=== PATIENT | male | born 1965 | race Caucasian/White ===

== ENCOUNTER 2018-05-10 08:43 | Day surgery (SDC) | payer MEDICAID, OTHER ==
[2018-05-08 10:36] VITALS: BMI 29.0
[~2018-05-10 08:43] MED LIST: LACTATED RINGERS 1,000 ML IV SCH
[2018-05-10] MEDS ORDERED: LACTATED RINGERS 1,000 ML IV ONE (09:10)
[2018-05-10 09:16] VITALS: RESP 16; TEMP 97.7
[2018-05-10] MEDS ORDERED: PROPOFOL 10 MG/ML 20 ML VIAL IV ONE (09:39)
[2018-05-10 10:09] VITALS: BP 108/63; PULSE 56
--- NOTE | 2018-05-10 10:09 | P.PCN ---
Date of Procedure: 05/10/18 Description of Procedure: PREOPERATIVE DIAGNOSIS: Colonoscopy screening Personal history of colon polyps. Family history of colon cancer, brothers x 2 Chronic anticoagulant therapy History of mechanical heart valve POSTOPERATIVE DIAGNOSIS: Colonoscopy screening Personal history of colon polyps. Family history of colon cancer, brothers Colon polyp at descending colon Moderate sigmoid diverticulosis Chronic anticoagulant therapy History of mechanical heart valve Angiodysplasia at 10 cm, rectum OPERATION: Colonoscopy to the ileocecal valve and appendiceal orifice. Colonoscopy with hot snare polypectomy SURGEON: Cesilia Lynn MD. ANESTHESIA: MAC. INDICATIONS: The patient is a 52-year-old male who presents for colonoscopy screening. Last colonoscopy over 13 years ago. Benefits and risks were described and informed consent was obtained. DESCRIPTION OF PROCEDURE: The patient had undergone Gatorade, MiraLAX and Dulcolax prep. He had been brought into the operating room and laid in the left lateral decubitus position. After adequate intravenous sedation, the rectum was examined with 2% lidocaine jelly. No external hemorrhoids were encountered. The rectal tone was within normal limits. No lesions were palpated in the rectal vault. An Olympus colonoscope was advanced until the ileocecal valve and appendiceal orifice were clearly viewed. The prep was fair with visualization of the mucosal folds. The scope was removed with visualization of each mucosal fold. Scattered diverticulosis was encountered. Colonic polyp was snare polypectomy. Arteriovenous malformation at 10 cm from the anal verge, rectum without bleeding. No evidence of focal colitis was found. Retroflexion of the scope demonstrated no internal hemorrhoids. The colon was desufflated. The patient had tolerated the procedure well. Withdrawal time was over 6 minutes. FINDINGS: No internal hemorrhoids No external hemorrhoids Arteriovenous malformation at 10 cm from the anal verge, rectum without bleeding Removal of 1 polyp: - Snare polypectomy 50 cm from the anal verge, 4 mm flat villous adenoma polyp, descending colon No focal colitis. Moderate sigmoid diverticulosis RECOMMENDATIONS: Repeat colonoscopy in 3 years, 2021, high risk history Plan - Discharge Summary Discharge Rx Participant: No New Discharge Prescriptions: No Action Aspirin 81 mg PO DAILY #30 chew Multivitamins, Thera [Multivitamin (formulary)] 1 each PO DAILY Furosemide [Lasix] 20 mg PO MOWEFR Cholecalciferol [Vitamin D3] 2,000 unit PO HS Warfarin [Coumadin] 5 mg PO DAILY Potassium Chloride 10 meq PO DAILY Enoxaparin [Lovenox] 100 mg SQ ONCE Discharge Medication List Aspirin 81 mg PO DAILY #30 chew 04/30/15 [Rx] Multivitamins, Thera [Multivitamin (formulary)] 1 each PO DAILY 06/14/15 [History] Cholecalciferol [Vitamin D3] 2,000 unit PO HS 11/26/15 [History] Furosemide [Lasix] 20 mg PO MOWEFR 11/26/15 [History] Potassium Chloride 10 meq PO DAILY 05/08/18 [History] Warfarin [Coumadin] 5 mg PO DAILY 05/08/18 [History] Enoxaparin [Lovenox] 100 mg SQ ONCE 05/10/18 [History]
--- NOTE | 2018-05-10 10:09 | P.GSHP ---
History of Present Illness H&P Date: 05/10/18 PREOPERATIVE DIAGNOSIS: Colonoscopy screening Personal history of colon polyps. Family history of colon cancer, brothers x 2 Chronic anticoagulant therapy History of mechanical heart valve POSTOPERATIVE DIAGNOSIS: Colonoscopy screening Personal history of colon polyps. Family history of colon cancer, brothers Colon polyp at descending colon Moderate sigmoid diverticulosis Chronic anticoagulant therapy History of mechanical heart valve Angiodysplasia at 10 cm, rectum OPERATION: Colonoscopy to the ileocecal valve and appendiceal orifice. Colonoscopy with hot snare polypectomy SURGEON: Cesilia Lynn MD. ANESTHESIA: MAC. INDICATIONS: The patient is a 52-year-old male who presents for colonoscopy screening. Last colonoscopy over 13 years ago. Benefits and risks were described and informed consent was obtained. DESCRIPTION OF PROCEDURE: The patient had undergone Gatorade, MiraLAX and Dulcolax prep. He had been brought into the operating room and laid in the left lateral decubitus position. After adequate intravenous sedation, the rectum was examined with 2% lidocaine jelly. No external hemorrhoids were encountered. The rectal tone was within normal limits. No lesions were palpated in the rectal vault. An Olympus colonoscope was advanced until the ileocecal valve and appendiceal orifice were clearly viewed. The prep was fair with visualization of the mucosal folds. The scope was removed with visualization of each mucosal fold. Scattered diverticulosis was encountered. Colonic polyp was snare polypectomy. Arteriovenous malformation at 10 cm from the anal verge, rectum without bleeding. No evidence of focal colitis was found. Retroflexion of the scope demonstrated no internal hemorrhoids. The colon was desufflated. The patient had tolerated the procedure well. Withdrawal time was over 6 minutes. FINDINGS: No internal hemorrhoids No external hemorrhoids Arteriovenous malformation at 10 cm from the anal verge, rectum without bleeding Removal of 1 polyp: - Snare polypectomy 50 cm from the anal verge, 4 mm flat villous adenoma polyp, descending colon No focal colitis. Moderate sigmoid diverticulosis RECOMMENDATIONS: Repeat colonoscopy in 3 years, 2021, high risk history Past Medical History Past Medical History: Atrial Fibrillation, Heart Failure, Hearing Disorder / Deafness, Hypertension, Sleep Apnea/CPAP/BIPAP Additional Past Medical History / Comment(s): . [facility], [place] [facility]. EARS- RT EAR HEARING AID, enlarged heart, "leaky heart valve" History of Any Multi-Drug Resistant Organisms: None Reported Past Surgical History: Cardiac Ablation, Ear Surgery, Heart Catheterization Additional Past Surgical History / Comment(s): RT EAR SURGERY x2, CARDIOVERSION X -JUNE 2015 & JULY 2015, ARIELLA 06/15/15, 11-29-15 heart valve replacement, COLONOSCOPY Past Anesthesia/Blood Transfusion Reactions: No Reported Reaction Additional Past Anesthesia/Blood Transfusion Reaction / Comment(s): was slow to wake up after heart valve sx Smoking Status: Never smoker - Past Family History Father Family Medical History: Cancer Additional Family Medical History / Comment(s): ESOPHAGUS CA Mother Family Medical History: Pulmonary Embolus Additional Family Medical History / Comment(s): Mother is living and is 87 yrs old. Brother(s) Family Medical History: Cancer Additional Family Medical History / Comment(s): COLON CA. SEVERAL BROTHERS WHO HAD COLON CA Medications and Allergies Home Medications Medication Instructions Recorded Confirmed Type Aspirin 81 mg PO DAILY #30 chew 04/30/15 05/10/18 Rx Multivitamins, Thera [Multivitamin 1 each PO DAILY 06/14/15 05/10/18 History (formulary)] Cholecalciferol [Vitamin D3] 2,000 unit PO HS 11/26/15 05/10/18 History Furosemide [Lasix] 20 mg PO MOWEFR 11/26/15 05/10/18 History Potassium Chloride 10 meq PO DAILY 05/08/18 05/10/18 History Warfarin [Coumadin] 5 mg PO DAILY 05/08/18 05/10/18 History Enoxaparin [Lovenox] 100 mg SQ ONCE 05/10/18 05/10/18 History Allergies Allergy/AdvReac Type Severity Reaction Status Date / Time No Known Allergies Allergy Verified 05/10/18 09:11 Surgical - Exam Vital Signs Temp Pulse Resp BP Pulse Ox 97.7 F 50 L 16 130/79 97 05/10/18 09:00 05/10/18 09:00 05/10/18 09:00 05/10/18 09:00 05/10/18 09:00
--- NOTE | 2018-05-10 10:10 | P.GSHP ---
History of Present Illness H&P Date: 05/10/18 CHIEF COMPLAINT: Colon screen HISTORY OF PRESENT ILLNESS: The patient is a 52-year-old male who presents for colon screen. Lower endoscopy was offered for further evaluation and management. PAST MEDICAL HISTORY: Please see list. PAST SURGICAL HISTORY: Please see list. MEDICATIONS: Please see list. ALLERGIES: Please see list. SOCIAL HISTORY: No illicit drug use FAMILY HISTORY: No reports of Crohn disease or ulcerative colitis. REVIEW OF ORGAN SYSTEMS: CONSTITUTIONAL: No reports of fevers or chills. PHYSICAL EXAM: VITAL SIGNS: Stable GENERAL: Well-developed pleasant in no acute distress. HEENT: No scleral icterus. Extraocular movements grossly intact. Moist buccal mucosa. NECK: Supple without lymphadenopathy. CHEST: Unlabored respirations. Equal bilateral excursions. CARDIOVASCULAR: Regular rate and rhythm. Distal 2+ pulses. ABDOMEN: Soft, nontender, nondistended. MUSCULOSKELETAL: No clubbing, cyanosis, or edema. ASSESSMENT: 1. Colon screen. PLAN: 1. Recommend proceeding with a lower endoscopy Past Medical History Past Medical History: Atrial Fibrillation, Heart Failure, Hearing Disorder / Deafness, Hypertension, Sleep Apnea/CPAP/BIPAP Additional Past Medical History / Comment(s): . [facility], [place] [facility]. EARS- RT EAR HEARING AID, enlarged heart, "leaky heart valve" History of Any Multi-Drug Resistant Organisms: None Reported Past Surgical History: Cardiac Ablation, Ear Surgery, Heart Catheterization Additional Past Surgical History / Comment(s): RT EAR SURGERY x2, CARDIOVERSION X -JUNE 2015 & JULY 2015, ARIELLA 06/15/15, 11-29-15 heart valve replacement, COLONOSCOPY Past Anesthesia/Blood Transfusion Reactions: No Reported Reaction Additional Past Anesthesia/Blood Transfusion Reaction / Comment(s): was slow to wake up after heart valve sx Smoking Status: Never smoker - Past Family History Father Family Medical History: Cancer Additional Family Medical History / Comment(s): ESOPHAGUS CA Mother Family Medical History: Pulmonary Embolus Additional Family Medical History / Comment(s): Mother is living and is 87 yrs old. Brother(s) Family Medical History: Cancer Additional Family Medical History / Comment(s): COLON CA. SEVERAL BROTHERS WHO HAD COLON CA Medications and Allergies Home Medications Medication Instructions Recorded Confirmed Type Aspirin 81 mg PO DAILY #30 chew 04/30/15 05/10/18 Rx Multivitamins, Thera [Multivitamin 1 each PO DAILY 06/14/15 05/10/18 History (formulary)] Cholecalciferol [Vitamin D3] 2,000 unit PO HS 11/26/15 05/10/18 History Furosemide [Lasix] 20 mg PO MOWEFR 11/26/15 05/10/18 History Potassium Chloride 10 meq PO DAILY 05/08/18 05/10/18 History Warfarin [Coumadin] 5 mg PO DAILY 05/08/18 05/10/18 History Enoxaparin [Lovenox] 100 mg SQ ONCE 05/10/18 05/10/18 History Allergies Allergy/AdvReac Type Severity Reaction Status Date / Time No Known Allergies Allergy Verified 05/10/18 09:11 Surgical - Exam Vital Signs Temp Pulse Resp BP Pulse Ox 97.7 F 50 L 16 130/79 97 05/10/18 09:00 05/10/18 09:00 05/10/18 09:00 05/10/18 09:00 05/10/18 09:00
== END 2018-05-10 10:57 | disposition home or self-care (01) ==
LOC: ORWHC2ENDO 08:43
PROVIDERS: ATTEND Surgery Plastic and Reconstructive Surgery
DX: Z12.11 Encounter for screening for malignant neoplasm of colon (principal); D12.4 Benign neoplasm of descending colon; K57.30 Diverticulosis of large intestine without perforation or abscess without bleeding; K62.89 Other specified diseases of anus and rectum; Z80.0 Family history of malignant neoplasm of digestive organs; Z83.71 Family history of colonic polyps; Z86.010 Personal history of colon polyps; H91.93 Unspecified hearing loss, bilateral; I11.0 Hypertensive heart disease with heart failure; I50.9 Heart failure, unspecified; I48.91 Unspecified atrial fibrillation; G47.30 Sleep apnea, unspecified; I38 Endocarditis, valve unspecified; Z99.89 Dependence on other enabling machines and devices; Z95.2 Presence of prosthetic heart valve; Z79.01 Long term (current) use of anticoagulants; Z79.82 Long term (current) use of aspirin; Z79.899 Other long term (current) drug therapy
CPT/HCPCS: 88305; 45385; J2704

== ENCOUNTER → 2018-06-21 | Outpatient (CLI) | payer MEDICAID ==
[2018-06-21 16:26] LABS: HCT 46.5 % (39.0-53.0); HGB 15.5 gm/dL (13.0-17.5); MCH 31.2 pg (25.0-35.0); MCHC 33.4 g/dL (31.0-37.0); MCV 93.4 fL (80.0-100.0); Mean Platelet Volume 8.9; Platelet Count 167 k/uL (150-450); RBC 4.98 m/uL (4.30-5.90); RDW 14.3 % (11.5-15.5); WBC 8.3 k/uL (3.8-10.6)
[2018-06-21 23:13] LABS: Albumin 4.2 g/dL (3.80-4.90); Albumin/Globulin Ratio 2.63 (1.60-3.17); Anion Gap 9.2 mmol/L (4.00-12.00); Calcium 8.8 mg/dL (8.7-10.3); Carbon Dioxide 26.8 mmol/L (21.6-31.8); Globulin 1.6 g/dL (1.6-3.3); Potassium 3.7 mmol/L (3.5-5.5); Total Bilirubin 1.2 mg/dL (0.2-1.2); Total Protein 5.8 g/dL (6.2-8.2)
== END ==
LOC: LABWHC1 15:55
PROVIDERS: ATTEND Internal Medicine Clinical Cardiac Electrophysiology
DX: Z01.812 Encounter for preprocedural laboratory examination (principal); I48.1 Persistent atrial fibrillation
CPT/HCPCS: 36415; 80053; 84443; 85027

== ENCOUNTER 2018-06-24 11:50 | Inpatient (IN) | payer MEDICAID ==
[2018-06-24] MEDS ORDERED: ASPIRIN 81 MG PO STA (12:24)
[2018-06-24 13:07] LABS: Basophils % (A) 0 %; Eosinophils # (A) 0.1 k/uL (0-0.7); Eosinophils % (A) 2 %; HCT 47.6 % (39.0-53.0); HGB 16.1 gm/dL (13.0-17.5); Lymphocytes # (A) 1.1 k/uL (1.0-4.8); Lymphocytes % (A) 15 %; MCH 31.3 pg (25.0-35.0); MCHC 33.7 g/dL (31.0-37.0); MCV 92.7 fL (80.0-100.0); Mean Platelet Volume 8.9; Monocytes # (A) 0.5 k/uL (0-1.0); Monocytes % (A) 7 %; Neutrophils # (A) 5.4 k/uL (1.3-7.7); Neutrophils % (A) 74 %; Platelet Count 188 k/uL (150-450); RBC 5.14 m/uL (4.30-5.90); RDW 13.9 % (11.5-15.5); WBC 7.4 k/uL (3.8-10.6)
--- NOTE | 2018-06-24 13:07 | ED ---
Chest Pain HPI - General Source: patient Mode of arrival: ambulatory Limitations: no limitations <Junior Morrison - Last Filed: 06/24/18 13:06> - General Source: patient, RN notes reviewed Mode of arrival: ambulatory Limitations: no limitations <Gerardo Esquivel - Last Filed: 06/24/18 16:27> - General Chief Complaint: Chest Pain Stated Complaint: sob, sweats, sent by Dr Demarco Time Seen by Provider: 06/24/18 12:24 - History of Present Illness Initial Comments: This a 53-year-old male presents emergency Department chief complaint of palpitations, chest pressure, cold sweats. Patient states he has known Imani junior as scheduled for cardioversion tomorrow by Dr. Demarco. Patient states that he was recently started on metoprolol 50 mg twice a day and flecainide. Patient states his been taking his medications but felt off today. Patient's heart rate has been elevated. Patient does take Coumadin for mechanical valve which this was performed at [facility] for mitral valve replacement. Patient has been cardioverted in the past. Patient denies any shortness breath, headache or dizziness. Patient states he has taken his medications as directed. (Gerardo Esquivel) - Related Data Home Medications Medication Instructions Recorded Confirmed Multivitamins, Thera [Multivitamin 1 tab PO DAILY 06/14/15 06/24/18 (formulary)] Cholecalciferol [Vitamin D3] 2,000 unit PO DAILY 11/26/15 06/24/18 Furosemide [Lasix] 20 mg PO DAILY 11/26/15 06/24/18 Potassium Chloride 10 meq PO DAILY 05/08/18 06/24/18 Warfarin [Coumadin] 5 mg PO [id number] 05/08/18 06/24/18 Flecainide [Tambocor] 50 mg PO Q12HR 06/21/18 06/24/18 Metoprolol Tartrate [Lopressor] 50 mg PO BID 06/21/18 06/24/18 Warfarin [Coumadin] 7.5 mg PO TH 06/21/18 06/24/18 Previous Rx's Medication Instructions Recorded Aspirin 81 mg PO DAILY #30 chew 04/30/15 Allergies Allergy/AdvReac Type Severity Reaction Status Date / Time No Known Allergies Allergy Verified 06/24/18 12:37 Review of Systems ROS Other: All systems not noted in ROS Statement are negative. <Junior Morrison - Last Filed: 06/24/18 13:06> ROS Other: All systems not noted in ROS Statement are negative. <Gerardo Esquivel - Last Filed: 06/24/18 16:27> ROS Statement: Those systems with pertinent positive or pertinent negative responses have been documented in the HPI. EKG Findings - EKG Comments: EKG Findings:: EKG shows sinus tachycardia likely atrial fibrillation rate of 123, [place] 120, QRS 114, QTc 552 <Junior Morrison - Last Filed: 06/24/18 13:06> Past Medical History Past Medical History: Atrial Fibrillation, Heart Failure, Hearing Disorder / Deafness, Hypertension, Sleep Apnea/CPAP/BIPAP Additional Past Medical History / Comment(s): [facility], [place] [facility]. EARS-RT EAR HEARING AID, enlarged heart, "leaky heart valve" History of Any Multi-Drug Resistant Organisms: None Reported Past Surgical History: Cardiac Ablation, Ear Surgery, Heart Catheterization Additional Past Surgical History / Comment(s): RT EAR SURGERY x2, CARDIOVERSION X -JUNE 2015 & JULY 2015, ARIELLA 06/15/15, 11-29-15 heart valve replacement, [place] LONOSCOPY Past Anesthesia/Blood Transfusion Reactions: No Reported Reaction Additional Past Anesthesia/Blood Transfusion Reaction / Comment(s): was slow to wake up after heart valve sx Past Psychological History: No Psychological Hx Reported Smoking Status: Never smoker Past Alcohol Use History: None Reported Past Drug Use History: None Reported - Past Family History Father Family Medical History: Cancer Additional Family Medical History / Comment(s): ESOPHAGUS CA Mother Family Medical History: Pulmonary Embolus Additional Family Medical History / Comment(s): Mother is living and is 87 yrs old. Brother(s) Family Medical History: Cancer Additional Family Medical History / Comment(s): COLON CA. SEVERAL BROTHERS WHO HAD COLON CA <Junior Morrison - Last Filed: 06/24/18 13:06> General Exam Limitations: no limitations <Junior Morrison - Last Filed: 06/24/18 13:06> General appearance: alert, in no apparent distress Head exam: Present: atraumatic, normocephalic, normal inspection Eye exam: Present: normal appearance, PERRL, EOMI. Absent: scleral icterus, conjunctival injection, periorbital swelling ENT exam: Present: normal exam, normal oropharynx, mucous membranes moist Neck exam: Present: normal inspection. Absent: tenderness, meningismus, lymphadenopathy Respiratory exam: Present: normal lung sounds bilaterally. Absent: respiratory distress, wheezes, rales, rhonchi, stridor Cardiovascular Exam: Present: normal rhythm, tachycardia, normal heart sounds, diastolic murmur. Absent: systolic murmur, rubs, gallop, clicks GI/Abdominal exam: Present: soft, normal bowel sounds. Absent: distended, tenderness, guarding, rebound, rigid Skin exam: Present: warm, dry, intact, normal color. Absent: rash <Gerardo Esquivel - Last Filed: 06/24/18 16:27> Course Vital Signs 06/24/18 06/24/18 06/24/18 11:54 12:22 12:23 Temperature 97.8 F Pulse Rate 123 H 124 H Pulse Rate [ 124 H Student Services Counselor ] Respiratory 18 18 18 Rate Blood Pressure 133/93 143/103 O2 Sat by Pulse 99 Oximetry 06/24/18 06/24/18 06/24/18 13:00 13:55 15:00 Temperature Pulse Rate 126 H 128 H 128 H Pulse Rate [ Student Services Counselor ] Respiratory 18 16 18 Rate Blood Pressure 124/92 121/98 O2 Sat by Pulse 98 Oximetry 06/24/18 15:35 Temperature Pulse Rate 128 H Pulse Rate [ Student Services Counselor ] Respiratory 18 Rate Blood Pressure 109/98 O2 Sat by Pulse 97 Oximetry Chest Pain [facility] <Gerardo Esquivel - Last Filed: 06/24/18 16:27> - [facility] 53-year-old male presented for tachycardia, A. fib. EKG shows sinus tach, Dr. Morrison did discuss case with cardiology who recommended IV metoprolol. Patient has received multiple rounds of IV push metoprolol with no change in heart rate. Patient currently is on oral metoprolol, flecinide. Cardizem drip will be started. Patient blood pressure is maintained. Patient is scheduled for cardioversion tomorrow. (Gerardo Esquivel) Disposition <Junior Morrison - Last Filed: 06/24/18 13:06> <Gerardo Esquivel - Last Filed: 06/24/18 16:27> Clinical Impression: Tachycardia Disposition: ADMITTED IP TO THIS HOSP Condition: Stable Referrals: Juan Pablo Bradley DO [Primary Care Provider] - 1-2 days
[2018-06-24 13:18] LABS: INR 4.1 (<1.2); Partial Thromboplastin Time 40.1 sec (22.0-30.0); Prothrombin Time 39.3 sec (9.0-12.0)
[2018-06-24 13:20] LABS: ALT 35 U/L (21-72); AST 32 U/L (17-59); Albumin 4.4 g/dL (3.5-5.0); Alkaline Phosphatase 84 U/L (38-126); Anion Gap 7 mmol/L; Blood Urea Nitrogen 16 mg/dL (9-20); Calcium 9.4 mg/dL (8.4-10.2); Carbon Dioxide 25 mmol/L (22-30); Chloride 106 mmol/L (98-107); Glucose 82 mg/dL (74-99); Magnesium 1.9 mg/dL (1.6-2.3); Potassium 4.8 mmol/L (3.5-5.1); Sodium 138 mmol/L (137-145); Total Protein 6.8 g/dL (6.3-8.2)
[2018-06-24] MEDS: METOPROLOL TARTRATE 5 MG/5 ML VIAL IVP STA ×4 (13:34→15:36)
--- NOTE | 2018-06-24 13:37 | XR ---
EXAMINATION TYPE: XR chest 2V DATE OF EXAM: 06/24/2018 COMPARISON: 04/27/2015 HISTORY: Shortness of breath TECHNIQUE: Frontal and lateral views of the chest are obtained. FINDINGS: Scattered senescent parenchymal changes noted. Hyperinflation compatible with COPD. No evidence for infiltrate. No evidence for atelectasis. Heart size is stable. Mediastinal structures are stable and grossly unremarkable. No evidence for hilar prominence. Degenerative changes dorsal spine. IMPRESSION: 1. No evidence for acute pulmonary disease.
[2018-06-24] MEDS ORDERED: SODIUM CHLORIDE 0.9% 500 ML 500 ML IV ONE (15:35)
[2018-06-24] MEDS: DILTIAZEM 125 MG in SODIUM CHLORIDE 0.9% 100 ML IV SCH (16:24)
[2018-06-24] MEDS: FLECAINIDE 50 MG TAB PO SCH (21:32)
[2018-06-24 21:45] VITALS: BMI 30.1
[2018-06-25 02:13] LABS: Cholesterol 151 mg/dL (<200); HDL Cholesterol 34 mg/dL (40-60); LDL Cholesterol,Calculated 100 mg/dL (0-99); Triglycerides 84 mg/dL (<150)
--- NOTE | 2018-06-25 04:20 | HP ---
HISTORY AND PHYSICAL DATE OF SERVICE: June 24, 2018 PRESENTING COMPLAINT: Heart racing. HISTORY OF PRESENTING COMPLAINT: This is a very pleasant 53 -year-old patient who follows with Dr. 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 Chronic stable medical conditions include congestive heart failure, hard of hearing with hearing aids, hypertension, obstructive sleep apnea. The patient has a mechanical mitral valve for which he is on Coumadin for about 2 years. Patient states he had a cardiac catheterization about 2 years ago that was unremarkable. The patient has been having increased heart rate for close to at least couple of weeks. Antiarrhythmics adjusted by Dr. Demarco and patient was due for a cardioversion tomorrow. The patient continued to feel a bit short of breath, cold sweats, chest pressure, and because of multitude of the symptoms, he was admitted. EKG in the ER showed what may be atrial tachycardia and was started on a Cardizem drip. Cardiology was consulted from there with a view to possible cardioversion tomorrow. Patient also was a bit short of breath. REVIEW OF SYSTEMS: CONSTITUTIONAL: Tired. HEENT None. RESPIRATORY as above. CARDIOVASCULAR as above. GASTROINTESTINAL: None. GENITOURINARY: None. MUSCULOSKELETAL none. DERMATOLOGICAL, HEMATOLOGIC, LYMPHATIC: none. PSYCHIATRY none. NEUROLOGICAL none. PAST MEDICAL HISTORY: Atrial fibrillation, congestive heart failure, hearing disorder, hypertension, obstructive sleep apnea, enlarged heart, mechanical mitral valve. PAST SURGICAL HISTORY: Cardiac ablation, cardiac cath reported normal coronaries per patient. SOCIAL HISTORY: No smoking, alcohol. . The patient is in to repair of appliances. FAMILY HISTORY: Of esophageal cancer. HOME MEDICATIONS: 1. Coumadin 7.5 mg on , 5 mg on other weekdays. 2. Potassium 10 mEq a day. 3. Multivitamin 1 tablet p.o. daily. 4. Lopressor 50 mg b.i.d. 5. Lasix 20 mg p.o. daily. 6. Flecainide 50 mg p.o. q.12. 7. Vitamin D3 2000 units p.o. daily. 8. Aspirin 81 mg p.o. daily. ALLERGIES: None. PHYSICAL EXAMINATION: VITAL SIGNS: Vital signs on presentation, temperature 97.8, pulse 120s, respiratory 18, blood pressure 133/93, pulse 99% on room air. GENERAL APPEARANCE: Well built, BMI 30.1. Lying in bed, tired-appearing. EYES: Pupils equal. Conjunctivae normal. HEENT: External appearance of nose and ears normal. Oral cavity normal. NECK: JVD possibly raised. Mass not palpable. RESPIRATORY: Effort normal. LUNGS: Slightly decreased breath sounds. CARDIOVASCULAR: Heart sounds irregular. No edema. ABDOMEN: Soft, nontender. Liver and spleen not palpable. LYMPHATICS: No lymph nodes palpable in the neck and axilla. PSYCHIATRY: Alert and oriented x3. Mood and affect normal. NEUROLOGICAL: Pupils equal. Cranial nerves grossly intact. Power sensation grossly intact. INVESTIGATIONS: Investigations reviewed in clinical context. White count 7.4, hemoglobin 16.1, platelets 188. INR 4.1, potassium 4.8, BUN 16, creatinine 0.80, troponin 0.014 x 2. EKG tracing personally reviewed by me. Possible atrial tachycardia versus atrial flutter with rate uncontrolled. Chest x-ray shows cardiomegaly, some venous prominence. ASSESSMENT: 1. Persistent atrial flutter with rapid ventricular rate, unsure of if this is underlying atrial tachycardia. 2. Mechanical mitral valve chronically on Coumadin. 3. Coumadin monitoring. 4. Chronic congestive heart failure, EF not known, probably precipitated made worse by arrhythmia. 5. Hard of hearing. Has hearing aids. 6. Essential hypertension. 7. Obstructive sleep apnea. PLAN: Patient is started on IV Cardizem in the ER. Home medications are resumed. Cardiology was informed. They are planning a cardioversion tomorrow I was told. Patient does look a bit in fluid overload. We will add a BNP and also give a dose of Lasix. Care was discussed with the patient. Questions were answered. Copy to Dr. Bradley. MMODL / IJN: [id number] /
[2018-06-25] MEDS: DILTIAZEM 125 MG in SODIUM CHLORIDE 0.9% 100 ML IV SCH (04:57)
[2018-06-25] MEDS: FLECAINIDE 50 MG TAB PO SCH ×2 (05:41→20:46)
[2018-06-25] MEDS ORDERED: FUROSEMIDE 10 MG/ML 4 ML VIAL IV SCH (06:00)
[2018-06-25 06:55] LABS: INR 2.9 (<1.2); Prothrombin Time 28.2 sec (9.0-12.0)
[2018-06-25] MEDS ORDERED: MIDAZOLAM 2 MG/2 ML VIAL ONE (07:12)
[2018-06-25] MEDS ORDERED: IV FLUID CONTINUATION 1,000 ML IV ONE (07:12)
[2018-06-25] MEDS ORDERED: PROPOFOL 10 MG/ML 20 ML VIAL IV ONE (07:12)
--- NOTE | 2018-06-25 07:36 | P.PCN ---
Preoperative Diagnosis: Diagnosis Breakthrough atrial fibrillation/atrial tachycardia following A. fib ablation many years back followed by mitral valve replacement several years back Symptomatic atrial fibrillation Recently started on flecainide 50 mg twice daily and outpatient elective cardioversion planned today Patient was symptomatic yesterday and came to the hospital and was admitted INR 2.9 Procedure Successful electrical cardioversion with a 200 J biphasic shock The patient was an IV Cardizem drip 5 mg an hour He had postconversion pause and significant sinus bradycardia in the 30s but has gradually improved SD interval 183 ms post-cardioversion Suggest Discontinue Cardizem Hold off on restarting metoprolol Continue flecainide 50 mg twice daily Continue monitoring on telemetry and watch for bradycardia Continue baby aspirin and Coumadin
[2018-06-25] MEDS ORDERED: ASPIRIN 325 MG TAB PO SCH (09:00)
[2018-06-25] MEDS: FUROSEMIDE 20 MG TAB PO SCH (09:04)
--- NOTE | 2018-06-25 10:29 | CONS ---
CONSULTATION CHIEF COMPLAINT: Palpitations. This is a 53-year-old gentleman with history of atrial flutter, obstructive sleep apnea, history of mechanical mitral valve, presented to the hospital with sustained palpitations. It is with associated with some shortness of breath and chest discomfort. EKG on admission showed atrial flutter with poorly controlled ventricular rate. The patient was evaluated recently by Cardiology and had been treated with antiarrhythmics and anticoagulants. He was supposed to have an outpatient cardioversion. Past medical at the time of my evaluation, patient just completed his cardioversion. The patient just underwent cardioversion this morning, and is in sinus rhythm at the moment. His INR is therapeutic at 2.9. He had 3 sets of troponins that are negative. Hemoglobin is normal at 16.1. PAST MEDICAL HISTORY: Significant for atrial flutter, history of mechanical mitral valve. MEDICATIONS: At home included flecainide 50 b.i.d., Lasix 20 q. daily, Lopressor 50 b.i.d., potassium, Coumadin and aspirin. ALLERGIES: There are no known drug allergies. FAMILY HISTORY: Negative for premature coronary artery disease. SOCIAL HISTORY: Negative for smoking, EtOH abuse, or drug abuse. REVIEW OF SYSTEMS: HEENT: Unremarkable. CARDIAC: As described above. RESPIRATORY: Negative. GI: Negative. : Negative. ALLERGY/IMMUNOLOGY: Negative. MUSCULOSKELETAL: Significant for arthritis. PSYCHOSOCIAL: Negative. ENDOCRINE: Negative. DERM: Negative. CONSTITUTIONAL. Negative. ONCOLOGICAL: Negative. The rest of the system review is not relevant. PHYSICAL EXAMINATION: On exam, afebrile. Heart rate is 64 beats per minute, blood pressure is 125/79, respiratory rate is 18, O2 sat is 97%. There is no jugular venous distention. Carotid upstroke is diminished. There is no bruit. Chest exam reveals diminished air entry at the bases. Heart exam reveals first and second heart sounds. No gallop. Abdomen is soft, nontender. Exam of extremities did not reveal any edema. Peripheral pulses are palpable. LABS: Show that INR is therapeutic. Hemoglobin is normal. Potassium is 4.8, creatinine is 0.8. Tropes are negative. ASSESSMENT: 1. Atrial flutter with poorly controlled ventricular rate. 2. History of mechanical mitral valve. PLAN: Patient underwent cardioversion this morning. He remains in sinus rhythm. Will continue with current medications including Coumadin. I will obtain a 2D echo to assess the mechanical valves. MMODL / IJN: [id number] /
--- NOTE | 2018-06-25 13:41 | ECHOF ---
Referral Reason:tachycardia MEASUREMENTS -------- HEIGHT: 182.9 cm WEIGHT: 105.7 kg BP: 125/79 RVIDd: 3.2 cm (< 3.3) IVSd: 1.4 cm (0.6 - 1.1) LVIDd: 6.2 cm (3.9 - 5.3) LVPWd: 1.4 cm (0.6 - 1.1) IVSs: 1.6 cm LVIDs: 4.9 cm LVPWs: 1.9 cm LA Diam: 4.1 cm (2.7 - 3.8) Ao Diam: 3.0 cm (2.0 - 3.7) AV Cusp: 2.5 cm (1.5 - 2.6) LA Diam: 4.7 cm (2.7 - 3.8) MV E Pino: 2.13 m/s MV DecT: 317 ms MV A Pino: 0.31 m/s MV E/A Ratio: 38.69 AR PHT: 778 ms RAP: 5.00 mmHg RVSP: 23.31 mmHg FINDINGS -------- Resting bradycardia (HR<60bpm). This was a technically adequate study. The left ventricular size is normal. Left ventricular wall thickness is normal. Overall left vent ricular systolic function is mildly impaired with, an EF between 45 - 50 %. The right ventricle is normal in size. The left atrium is moderately dilated. The right atrial size is normal. Interatrial and interventricular septum intact. There is mild aortic valve sclerosis. There is mild aortic regurgitation. The peak and mean MV gradients are 20.94mmHg 4.92mmHg as measured by doppler. Normal Mechanical Pro sthetic valve. Mild tricuspid regurgitation present. There is no evidence of pulmonary hypertension. The right v entricular systolic pressure, as measured by Doppler, is 23.31mmHg. Trace/mild (physiologic) pulmonic regurgitation. The aortic root size is normal. Normal inferior vena cava with normal inspiratory collapse consistent with estimated right atrial pre ssure of 5 mmHg. There is no pericardial effusion. CONCLUSIONS -------- 1. This was a technically adequate study. 2. The left ventricular size is normal. 3. Left ventricular wall thickness is normal. 4. The right ventricle is normal in size. 5. The left atrium is moderately dilated. 6. The right atrial size is normal. 7. Interatrial and interventricular septum intact. 8. There is mild aortic valve sclerosis. 9. There is mild aortic regurgitation. 10. The peak and mean MV gradients are 20.94mmHg 4.92mmHg as measured by doppler. 11. Normal Mechanical Prosthetic valve. 12. Mild tricuspid regurgitation present. 13. There is no evidence of pulmonary hypertension. 14. The right ventricular systolic pressure, as measured by Doppler, is 23.31mmHg. 15. Trace/mild (physiologic) pulmonic regurgitation. 16. The aortic root size is normal. 17. Normal inferior vena cava with normal inspiratory collapse consistent with estimated right atrial pressure of 5 mmHg. 18. There is no pericardial effusion. BIOINFORMATICS PROGRAMMER: Nicolasa Ashton RDCS
[2018-06-25] MEDS ORDERED: WARFARIN 5 MG TAB PO SCH (18:00)
--- NOTE | 2018-06-25 20:32 | PN ---
PROGRESS NOTE DATE OF SERVICE: 06/25/2018 PRESENTING COMPLAINT: Heart racing. INTERVAL HISTORY: This patient had a prior cardioversion presented yesterday with uncontrolled atrial flutter and atrial tachycardia. This morning underwent successful DC cardioversion by Dr. Demarco. Stable. Lying in bed. No new issues. REVIEW OF SYSTEMS: Done for constitutional, cardiovascular, GI, pulmonary; relevant findings as above. CURRENT MEDICATIONS: Reviewed that include Coumadin, flecainide. PHYSICAL EXAMINATION: VITAL SIGNS: Temperature 98.3, pulse 44, respiratory rate 18, blood pressure 110/64, pulse ox 96% on room air. GENERAL APPEARANCE: Sitting up, awake. EYES: Pupils equal. Conjunctivae normal. NECK: JVD not raised. Mass not palpable. RESPIRATORY: Effort normal. LUNGS: Fair air entry. CARDIOVASCULAR: First and second sounds normal. No edema. ABDOMEN: Soft, nontender. Liver and spleen not palpable. PSYCHIATRY: Alert and oriented x3. Mood and affect normal. INVESTIGATIONS: 2D echo showed EF of 45-50 percent. INR 2.9. TSH 1.5. ASSESSMENT: 1. Persistent atrial flutter, atrial tachycardia with rapid ventricular rate, now status post successful DC cardioversion and sinus rhythm. 2. Mechanical mitral valve chronically on Coumadin. 3. Coumadin monitoring. 4. Chronic congestive heart failure from systolic dysfunction EF 45%, made worse by atrial flutter fib and atrial tachycardia. 5. Hard of hearing. Has hearing aids. 6. Essential hypertension. 7. Obstructive sleep apnea. PLAN: Continue current medication and treatment plan. Continue on flecainide. Will see how the patient does and go from there. MMODL / IJN: [id number] /
[2018-06-26 05:16] VITALS: RESP 16
[2018-06-26 06:59] LABS: INR 2.5 (<1.2); Prothrombin Time 24.6 sec (9.0-12.0)
[2018-06-26] MEDS: FUROSEMIDE 20 MG TAB PO SCH (08:50)
[2018-06-26] MEDS: FLECAINIDE 50 MG TAB PO SCH (08:50)
[2018-06-26] MEDS ORDERED: ASPIRIN 81 MG PO SCH (09:00)
--- NOTE | 2018-06-26 11:16 | P.PN ---
Subjective Progress Note Date: 06/26/18 This is a 53-year-old gentleman with known history of atrial flutter, obstructive sleep apnea, history of mechanical mitral valve replacement, who presented to the hospital with symptoms of sustained palpitations with associated shortness of breath and chest discomfort. His EKG on admission here showed atrial flutter with rapid ventricular response. Patient does follow with Dr. Demarco in the office and was scheduled to undergo an outpatient cardioversion. Yesterday patient underwent successful electrical cardioversion as an inpatient here by Dr. Demarco. This morning he remains in a normal sinus rhythm, feels well overall. His heart rate yesterday was noted to be in the 40s, today he is maintaining a heart rate in the mid 50s to low 60s. Blood pressure 126/70. Objective - Vital Signs Vital signs: Vital Signs Temp 98 F 06/26/18 08:00 Pulse 65 06/26/18 08:00 Resp 16 06/26/18 08:00 BP 124/69 06/26/18 08:00 Pulse Ox 98 06/26/18 08:00 Intake & Output 06/25/18 06/26/18 06/26/18 18:59 06:59 18:59 Intake Total 920 360 Balance 920 360 Weight 100.5 kg Intake: IV 200 Oral 720 360 Other: Voiding Method Toilet Toilet # Voids 1 1 - Exam PHYSICAL EXAMINATION: GENERAL: 43-year-old gentleman in no acute distress at the time of my examination HEENT: Head is atraumatic, normocephalic. Pupils equal, round. Sclera anicteric. Conjunctiva are clear. Mucous membranes of the mouth are moist. Neck is supple. There is no elevated jugular venous pressure. No carotid bruit is heard. HEART EXAMINATION: Heart S1 and S2 metallic valve sound is heard CHEST EXAMINATION: Lungs are clear to auscultation and precussion. No chest wall tenderness is noted on palpation or with deep breathing. ABDOMEN: Soft, nontender. Bowel sounds are heard. No organomegaly noted. EXTREMITIES: 2+ peripheral pulses with no evidence of peripheral edema and no calf tenderness noted. NEUROLOGIC patient is awake, alert and oriented 3 . . - Labs CBC & Chem 7: 06/24/18 12:50 06/24/18 12:50 Labs: Abnormal Lab Results - Last 24 Hours (Table) 06/26/18 Range/Units 06:04 PT 24.6 H (9.0-12.0) sec INR 2.5 H (<1.2) Assessment and Plan Plan: Assessment and plan #1 atrial flutter with rapid ventricular response, status post elective cardioversion, remaining now in normal sinus rhythm. #2 history of mechanical mitral valve replacement, on Coumadin, INR 2.5. #3 obstructive sleep apnea Plan From cardiology's perspective, patient should be able to be discharged home today. We will make him a follow-up appointment to see Dr. Demarco in the office post discharge. DNP note has been reviewed, I agree with a documented findings and plan of care. Patient was seen and examined.
[2018-06-26 11:18] VITALS: BP 132/75; PULSE 55; TEMP 98.2
--- NOTE | 2018-06-27 00:59 | DS ---
DISCHARGE SUMMARY DATE OF ADMISSION: June 24, 2018. DATE OF DISCHARGE: June 26, 2018 FINAL DIAGNOSES: 1. Persistent atrial flutter with rapid ventricular rate on possible atrial tachycardia, POA. 2. Mechanical mitral valve, chronically on Coumadin. 3. Coumadin monitoring. 4. Chronic congestive heart failure, systolic dysfunction EF 45-50 percent, precipitated by arrhythmia. 5. Hard of hearing. Has hearing aids. 6. Essential hypertension. 7. Obstructive sleep apnea. CONSULTATION: Dr. Jian Demarco from Cardiology. 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 Has had increased heart rate at least 2 weeks. The patient was scheduled to have cardioversion but presented here, was getting tired, short of breath, chest pressure. The patient underwent successful cardioversion and remained in sinus rhythm. Medications were adjusted by Dr. Demarco. Patient on day of discharge, doing much, better up and about. PHYSICAL EXAMINATION: Temperature 98, pulse 65, respiratory rate 16, blood pressure 124/69, pulse ox 98% on room air. Lungs fair entry. Cardiovascular: First and second sounds normal. INVESTIGATIONS: INR is 2.5. TSH is normal. LDL is 100. DISCHARGE MEDICATIONS: 1. Aspirin 81 mg a day. 2. Multivitamin 1 tablet p.o. daily. 3. Vitamin D3 2000 units p.o. daily. 4. Lasix 20 mg p.o. daily. 5. Coumadin 5 mg daily except 7.5 on . 6. Flecainide 50 mg p.o. q.12. FOLLOW UP: Follow up with Dr. Demarco on July 19, 2018. Follow up with Dr. Bradley on July 03, 2018. Copy to Dr. Bradley. MMODL / IJN: [id number] /
[2018-06-27] MEDS ORDERED: WARFARIN 7.5 MG TAB PO SCH (18:00)
== END 2018-06-26 14:20 | disposition home or self-care (01) | DRG 309 ==
LOC: EC 11:50 → 3SCARD 18:14
PROVIDERS: ADMIT Hospitalist; ATTEND Hospitalist
PROC: 5A2204Z Restoration of Cardiac Rhythm, Single (ICD-10-PCS; principal; 2018-06-25 07:15)
DX: I48.92 Unspecified atrial flutter (principal); I50.22 Chronic systolic (congestive) heart failure; I48.91 Unspecified atrial fibrillation; G47.33 Obstructive sleep apnea (adult) (pediatric); I47.1 Supraventricular tachycardia; H91.90 Unspecified hearing loss, unspecified ear; I11.0 Hypertensive heart disease with heart failure; Z97.4 Presence of external hearing-aid; Z79.01 Long term (current) use of anticoagulants; Z95.2 Presence of prosthetic heart valve; Z79.82 Long term (current) use of aspirin; Z79.899 Other long term (current) drug therapy; Z99.89 Dependence on other enabling machines and devices; Z80.0 Family history of malignant neoplasm of digestive organs
CPT/HCPCS: 36415; 71046; 80053; 80061; 83735; 83880; 84443; 84484; 85025; 85610; 85730; 92960; 93005; 93306; 96361; 96365; 96366; 96375; 96376; 99285

== ENCOUNTER 2020-05-03 09:52 | Emergency (ER) | payer MEDICAID ==
[2020-05-03 09:56] VITALS: RESP 18
[2020-05-03] MEDS ORDERED: SODIUM CHLORIDE 0.9% 500 ML 500 ML IV STA (10:15)
--- NOTE | 2020-05-03 10:34 | ED ---
General Adult HPI - General Chief complaint: Arrhythmia/Palpitations Stated complaint: Covid +, Heart issues Time Seen by Provider: 05/03/20 10:01 Source: patient Mode of arrival: ambulatory Limitations: no limitations - History of Present Illness Initial comments: Patient is a 54-year-old male, with history of A. fib on Coumadin, presenting to the emergency Department with complaints of fatigue, intermittent palpitations and dyspnea x 2 weeks. Patient states he started being symptomatic on April 17 after his son tested positive for cold. Patient has been tested 3 times in the past 2 weeks, all were positive. He denies ever having a fever, mostly a intermittent dry cough, shortness of breath, increases with exertion and fatigue. Patient states he has been eating and drinking fluids. He admits to some mild nausea, no vomiting, no diarrhea, no abdominal pain. He denies any chest pain but does admit to some intermittent palpitations. He follows with Dr. Demarco. He states he does have an appointment with him in the next few weeks but wanted to come into the ER today to make sure he is "doing well." He has no other complaints at this time. Upon arrival to the ER, his vital signs are stable. - Related Data Home Medications Medication Instructions Recorded Confirmed Multivitamins, Thera [Multivitamin 1 tab PO W/BRKFST 06/14/15 05/03/20 (formulary)] Furosemide [Lasix] 20 mg PO W/BRKFST 11/26/15 05/03/20 Warfarin [Coumadin] 5 mg PO SUMOWETHFR@1700 05/08/18 05/03/20 Flecainide [Tambocor] 50 mg PO BID@0900,2100 06/21/18 05/03/20 Aspirin 81 mg PO W/BRKFST 05/03/20 05/03/20 Cholecalciferol [Vitamin D3 (25 50 mcg PO W/BRKFST 05/03/20 05/03/20 Mcg = 1000 Iu)] Warfarin [Coumadin] 7.5 mg PO TUSA@1700 05/03/20 05/03/20 Allergies Allergy/AdvReac Type Severity Reaction Status Date / Time No Known Allergies Allergy Verified 05/03/20 11:26 Review of Systems ROS Statement: Those systems with pertinent positive or pertinent negative responses have been documented in the HPI. ROS Other: All systems not noted in ROS Statement are negative. Past Medical History Past Medical History: Atrial Fibrillation, Heart Failure, Hearing Disorder / Deafness, Hypertension, Sleep Apnea/CPAP/BIPAP Additional Past Medical History / Comment(s): , UPPER SKAGIT MARY ELLEN. EARS-RT EAR HEARING AID, enlarged heart, "leaky heart valve" History of Any Multi-Drug Resistant Organisms: None Reported Past Surgical History: Cardiac Ablation, Ear Surgery, Heart Catheterization Additional Past Surgical History / Comment(s): RT EAR SURGERY x2, CARDIOVERSION X -JUNE 2015 & JULY 2015, ARIELLA 06/15/15, 11-29-15 heart valve replacement, COLONOSCOPY Past Anesthesia/Blood Transfusion Reactions: No Reported Reaction Additional Past Anesthesia/Blood Transfusion Reaction / Comment(s): was slow to wake up after heart valve sx Past Psychological History: No Psychological Hx Reported Smoking Status: Never smoker Past Alcohol Use History: None Reported Past Drug Use History: None Reported - Past Family History Father Family Medical History: Cancer Additional Family Medical History / Comment(s): ESOPHAGUS CA Mother Family Medical History: Pulmonary Embolus Additional Family Medical History / Comment(s): Mother is living and is 91 yrs old. Brother(s) Family Medical History: Cancer Additional Family Medical History / Comment(s): COLON CA. SEVERAL BROTHERS WHO HAD COLON CA General Exam - General Exam Comments Initial Comments: GENERAL: Patient is well-developed and well-nourished. Patient is nontoxic and in no acute distress. HEAD: Atraumatic, normocephalic. EYES: Pupils equal round and reactive to light, extraocular movements intact, sclera anicteric, conjunctiva are normal. Eyelids were unremarkable. ENT: TMs normal, nares patent, oropharynx clear without exudates. Moist mucous membranes. NECK: Normal range of motion, supple without lymphadenopathy or JVD. LUNGS: Unlabored respirations. Breath sounds clear to auscultation bilaterally and equal. No wheezes rales or rhonchi. HEART: Irregular rate and rhythm without murmurs, rubs or gallops. ABDOMEN: Soft, nontender, normoactive bowel sounds. No guarding, no rebound. No masses appreciated. : Deferred MUSCULOSKELETAL: Normal extremities with adequate strength and normal range of motion, no pitting or edema. No clubbing or cyanosis. NEUROLOGICAL: Patient is alert and oriented x 3. Motor and sensory are also intact. Cranial nerves II through XII grossly intact. Symmetrical smile. Normal speech, normal gait. PSYCH: Normal mood, normal affect. SKIN: Warm, Dry, normal turgor, no rashes or lesions noted. Limitations: no limitations Course Vital Signs 05/03/20 09:53 Temperature 98.1 F Pulse Rate 97 Respiratory 18 Rate Blood Pressure 156/91 O2 Sat by Pulse 98 Oximetry EKG Findings - EKG Comments: EKG Findings:: Atrial fib, with competing junctional pacer, no signs of an acute process. Ventricular rate 78, QRS duration 114, QT 394. Similar to previous on 06/26/2018. Medical Decision Making - Medical Decision Making Patient is a 54-year-old male with history of A. fib on Coumadin, presenting with positive Covid 2 weeks, dyspnea, fatigue and intermittent palpitations. His vital signs stable upon arrival, the exam is unremarkable, no acute process. EKG shows A. fib, no other acute process. Labs show a normal white count, INR is elevated at 4.9, d-dimer is normal, LDH is 706, CRP is normal at 6. Chest x- ray shows chronic changes with new peripheral faint acute opacities consistent with Covid 19. Vital signs remain stable, 96-99% on room air. I discussed these findings with the patient. I did recommend skipping 2 doses of his Cou madin, have INR rechecked. He is having no active bleeding. He is stable for discharge. I did recommend vitamin C and D. Continue to increase fluid intake. Patient is in agreement this plan of care. He will follow-up with his physician. Return parameters were discussed with the patient he verbalizes understanding. Case discussed with Dr. Carrizales. - Lab Data Result diagrams: 05/03/20 10:34 05/03/20 10:34 Lab Results 05/03/20 05/03/20 05/03/20 Range/Units 10:34 10:34 10:34 WBC 7.1 (3.8-10.6) k/uL RBC 5.25 (4.30-5.90) m/uL Hgb 16.9 (13.0-17.5) gm/dL Hct 48.5 (39.0-53.0) % MCV 92.2 (80.0-100.0) fL MCH 32.2 (25.0-35.0) pg MCHC 34.9 (31.0-37.0) g/dL RDW 12.4 (11.5-15.5) % Plt Count 189 (150-450) k/uL MPV 8.6 Neutrophils % 80 % Lymphocytes % 9 % Monocytes % 7 % Eosinophils % 2 % Basophils % 1 % Neutrophils # 5.7 (1.3-7.7) k/uL Lymphocytes # 0.7 L (1.0-4.8) k/uL Monocytes # 0.5 (0-1.0) k/uL Eosinophils # 0.1 (0-0.7) k/uL Basophils # 0.1 (0-0.2) k/uL PT 47.2 H (9.0-12.0) sec INR 4.9 H (<1.2) APTT 39.5 H (22.0-30.0) sec D-Dimer <0.17 (<0.60) mg/L FEU Sodium 135 L (137-145) mmol/L Potassium 4.2 (3.5-5.1) mmol/L Chloride 103 (98-107) mmol/L Carbon Dioxide 25 (22-30) mmol/L Anion Gap 7 mmol/L BUN 21 H (9-20) mg/dL Creatinine 0.82 (0.66-1.25) mg/dL Est GFR (CKD-EPI)AfAm >90 (>60 ml/min/1.73 sqM) Est GFR (CKD-EPI)NonAf >90 (>60 ml/min/1.73 sqM) Glucose 90 (74-99) mg/dL Plasma Lactic Acid Rony (0.7-2.0) mmol/L Calcium 8.9 (8.4-10.2) mg/dL Magnesium 2.0 (1.6-2.3) mg/dL Total Bilirubin 1.1 (0.2-1.3) mg/dL AST 25 (17-59) U/L ALT 21 (4-49) U/L Alkaline Phosphatase 91 (38-126) U/L Lactate Dehydrogenase 706 H (313-618) U/L C-Reactive Protein 6.0 (<10.0) mg/L Total Protein 7.0 (6.3-8.2) g/dL Albumin 4.2 (3.5-5.0) g/dL 05/03/20 Range/Units 10:34 WBC (3.8-10.6) k/uL RBC (4.30-5.90) m/uL Hgb (13.0-17.5) gm/dL Hct (39.0-53.0) % MCV (80.0-100.0) fL MCH (25.0-35.0) pg MCHC (31.0-37.0) g/dL RDW (11.5-15.5) % Plt Count (150-450) k/uL MPV Neutrophils % % Lymphocytes % % Monocytes % % Eosinophils % % Basophils % % Neutrophils # (1.3-7.7) k/uL Lymphocytes # (1.0-4.8) k/uL Monocytes # (0-1.0) k/uL Eosinophils # (0-0.7) k/uL Basophils # (0-0.2) k/uL PT (9.0-12.0) sec INR (<1.2) APTT (22.0-30.0) sec D-Dimer (<0.60) mg/L FEU Sodium (137-145) mmol/L Potassium (3.5-5.1) mmol/L Chloride (98-107) mmol/L Carbon Dioxide (22-30) mmol/L Anion Gap mmol/L BUN (9-20) mg/dL Creatinine (0.66-1.25) mg/dL Est GFR (CKD-EPI)AfAm (>60 ml/min/1.73 sqM) Est GFR (CKD-EPI)NonAf (>60 ml/min/1.73 sqM) Glucose (74-99) mg/dL Plasma Lactic Acid Rony 1.0 (0.7-2.0) mmol/L Calcium (8.4-10.2) mg/dL Magnesium (1.6-2.3) mg/dL Total Bilirubin (0.2-1.3) mg/dL AST (17-59) U/L ALT (4-49) U/L Alkaline Phosphatase (38-126) U/L Lactate Dehydrogenase (313-618) U/L C-Reactive Protein (<10.0) mg/L Total Protein (6.3-8.2) g/dL Albumin (3.5-5.0) g/dL Disposition Clinical Impression: COVID-19, Dyspnea, Elevated INR Disposition: HOME SELF-CARE Condition: Stable Instructions (If sedation given, give patient instructions): Coronavirus Disease 2019 (COVID-19) Additional Instructions: Please return to the Emergency Department if symptoms worsen or any other concerns. Please continue to increase fluid intake, recommend vitamin C and D. Please skip 2 doses of your Coumadin, re-check INR. Follow-up with PCP. Is patient prescribed a controlled substance at d/c from ED?: No Referrals: Juan Pablo Bradley DO [Primary Care Provider] - 1-2 days
[2020-05-03 10:44] LABS: Basophils # (A) 0.1 k/uL (0-0.2); Basophils % (A) 1 %; Eosinophils # (A) 0.1 k/uL (0-0.7); Eosinophils % (A) 2 %; HCT 48.5 % (39.0-53.0); HGB 16.9 gm/dL (13.0-17.5); Lymphocytes # (A) 0.7 k/uL (1.0-4.8); Lymphocytes % (A) 9 %; MCH 32.2 pg (25.0-35.0); MCHC 34.9 g/dL (31.0-37.0); MCV 92.2 fL (80.0-100.0); Mean Platelet Volume 8.6; Monocytes # (A) 0.5 k/uL (0-1.0); Monocytes % (A) 7 %; Neutrophils # (A) 5.7 k/uL (1.3-7.7); Neutrophils % (A) 80 %; Platelet Count 189 k/uL (150-450); RBC 5.25 m/uL (4.30-5.90); RDW 12.4 % (11.5-15.5); WBC 7.1 k/uL (3.8-10.6)
[2020-05-03 10:58] LABS: D-Dimer <0.17 mg/L FEU (<0.60); INR 4.9 (<1.2); Partial Thromboplastin Time 39.5 sec (22.0-30.0); Prothrombin Time 47.2 sec (9.0-12.0)
[2020-05-03 10:59] LABS: ALT 21 U/L (4-49); AST 25 U/L (17-59); African American GFR (CKD) >90 (>60 ml/min/1.73 sqM); Albumin 4.2 g/dL (3.5-5.0); Alkaline Phosphatase 91 U/L (38-126); Anion Gap 7 mmol/L; Blood Urea Nitrogen 21 mg/dL (9-20); Calcium 8.9 mg/dL (8.4-10.2); Carbon Dioxide 25 mmol/L (22-30); Chloride 103 mmol/L (98-107); Glucose 90 mg/dL (74-99); LDH 706 U/L (313-618); Non-African American GFR(CKD) >90 (>60 ml/min/1.73 sqM); Potassium 4.2 mmol/L (3.5-5.1); Sodium 135 mmol/L (137-145); Total Bilirubin 1.1 mg/dL (0.2-1.3)
--- NOTE | 2020-05-03 11:38 | XR ---
EXAMINATION TYPE: XR chest 1V portable DATE OF EXAM: 05/03/2020 COMPARISON: Chest x-ray June 24, 2018 HISTORY: covid +, dyspnea TECHNIQUE: Single AP portable frontal upright view of the chest is obtained. FINDINGS: Overlying sternal wires along with cardiac valvular ring redemonstrated. There is chronic right pleural changes bilaterally with suggestion of faint increased opacities in the peripheral lung s seen best in the left mid to lower lungs. No pleural effusion or pneumothorax. The cardiac silhoue tte size is stable and upper limits of normal. The osseous structures remain intact. IMPRESSION: Chronic changes with new peripheral faint acute opacities consistent with Covid-19 infec tion.
[2020-05-03 12:58] VITALS: BP 128/81; PULSE 55; TEMP 98.6
[2020-05-03 20:33] LABS: Ferritin 96.1 ng/mL (22.0-322.0)
== END 2020-05-03 12:58 | disposition home or self-care (01) ==
LOC: EC 09:52
DX: U07.1 COVID-19 (principal); I11.0 Hypertensive heart disease with heart failure; I50.9 Heart failure, unspecified; I48.91 Unspecified atrial fibrillation; R79.1 Abnormal coagulation profile; Z79.82 Long term (current) use of aspirin
CPT/HCPCS: 36415; 71045; 80053; 82728; 83605; 83615; 83735; 84145; 85025; 85379; 85610; 85730; 86140; 87040; 93005

== ENCOUNTER → 2020-10-29 | Outpatient (CLI) | payer MEDICAID ==
[2020-10-29 11:25] LABS: HCT 46.2 % (39.0-53.0); HGB 15.5 gm/dL (13.0-17.5); MCH 33.3 pg (25.0-35.0); MCHC 33.7 g/dL (31.0-37.0); MCV 98.9 fL (80.0-100.0); Mean Platelet Volume 8.9; Platelet Count 180 k/uL (150-450); RBC 4.67 m/uL (4.30-5.90); RDW 13.9 % (11.5-15.5); WBC 7.4 k/uL (3.8-10.6)
[2020-10-29 11:39] LABS: African American GFR (CKD) >90 (>60 ml/min/1.73 sqM); Anion Gap 5 mmol/L; Blood Urea Nitrogen 17 mg/dL (9-20); Carbon Dioxide 29 mmol/L (22-30); Chloride 102 mmol/L (98-107); Non-African American GFR(CKD) >90 (>60 ml/min/1.73 sqM); Potassium 4.3 mmol/L (3.5-5.1); Sodium 136 mmol/L (137-145)
== END | disposition home or self-care (01) ==
LOC: LABWHC1 10:31
PROVIDERS: ATTEND Internal Medicine Clinical Cardiac Electrophysiology
DX: Z01.812 Encounter for preprocedural laboratory examination (principal); I48.19 Other persistent atrial fibrillation
CPT/HCPCS: 36415; 80051; 82565; 84520; 85027

== ENCOUNTER 2020-11-01 09:46 | Day surgery (SDC) | payer MEDICAID ==
[2020-11-01] MEDS ORDERED: SODIUM CHLORIDE 0.9% 1,000 ML IV SCH (10:32)
[2020-11-01 10:37] VITALS: TEMP 97.8
[2020-11-01 10:54] LABS: INR 2.8 (<1.2); Prothrombin Time 27.4 sec (9.0-12.0)
[2020-11-01 10:57] LABS: African American GFR (CKD) >90 (>60 ml/min/1.73 sqM); Anion Gap 8 mmol/L; Blood Urea Nitrogen 16 mg/dL (9-20); Calcium 9.1 mg/dL (8.4-10.2); Carbon Dioxide 27 mmol/L (22-30); Chloride 103 mmol/L (98-107); Glucose 90 mg/dL (74-99); Non-African American GFR(CKD) >90 (>60 ml/min/1.73 sqM); Potassium 4.2 mmol/L (3.5-5.1); Sodium 138 mmol/L (137-145)
[2020-11-01] MEDS ORDERED: PROPOFOL 10 MG/ML 20 ML VIAL IV ONE (12:25)
--- NOTE | 2020-11-01 12:50 | P.EPPROC ---
- EP Procedure Note Electrophysiology Procedure Note: Diagnosis Atrial fibrillation with RVR despite flecainide 50 g twice daily Past history of paroxysmal atrial fibrillation status post ablation many years back Mitral valve replacement subsequently INR therapeutic today at 2.8 Electrolytes normal sodium 138, potassium 4.2, BUN 16 and creatinine 0.8 Procedure Successful electrical cardioversion with a 200 J biphasic shock Neck is a delivered = 248 J, around 70 ohms Plan Patient go home today once fully awake and stable and increase the dose of flecainide to 75 mg twice daily Follow Dr. Demarco in about 3 weeks Continue anticoagulation
[2020-11-01 19:44] VITALS: BP 110/73; RESP 16
[2020-11-01 19:47] VITALS: PULSE 69
== END 2020-11-01 14:43 | disposition home or self-care (01) ==
LOC: CATHEP 09:46
PROVIDERS: ATTEND Internal Medicine Clinical Cardiac Electrophysiology
DX: I48.20 Chronic atrial fibrillation, unspecified (principal); Z95.2 Presence of prosthetic heart valve; I10 Essential (primary) hypertension; Z82.49 Family history of ischemic heart disease and other diseases of the circulatory system; Z79.899 Other long term (current) drug therapy; I11.0 Hypertensive heart disease with heart failure; I50.9 Heart failure, unspecified; G47.33 Obstructive sleep apnea (adult) (pediatric); Z79.82 Long term (current) use of aspirin; Z79.01 Long term (current) use of anticoagulants
CPT/HCPCS: 92960; 80048; 85610; J2704

== ENCOUNTER 2020-12-13 10:09 | Day surgery (SDC) | payer MEDICAID ==
[2020-12-10 10:17] VITALS: BMI 30.2
[~2020-12-13 10:09] MED LIST changes: +SODIUM CHLORIDE 0.9% 1,000 ML IV SCH
[2020-12-13] MEDS ORDERED: fentaNYL (PF) 50 MCG/ML 2 ML AMP ONE (12:19)
[2020-12-13] MEDS ORDERED: PROTAMINE SULFATE 10 MG/ML 5 ML VIAL IV ONE (12:19)
[2020-12-13] MEDS ORDERED: FUROSEMIDE 10 MG/ML 2 ML VIAL ONE (12:19)
[2020-12-13] MEDS ORDERED: LIDOCAINE 1% INJ 10MG/ML (20 ML MDV) ONE ×2 (12:19→12:32)
[2020-12-13] MEDS ORDERED: PROPOFOL 10 MG/ML 20 ML VIAL IV ONE (12:19)
[2020-12-13] MEDS ORDERED: SUCCINYLCHOLINE CHLORIDE 100 MG/5 ML SYR IV ONE (12:19)
[2020-12-13] MEDS ORDERED: MIDAZOLAM 2 MG/2 ML VIAL ONE (12:19)
[2020-12-13] MEDS ORDERED: ATROPINE SULFATE 0.4 MG/ML 1 ML VIAL ONE (12:19)
[2020-12-13] MEDS ORDERED: HEPARIN SODIUM,PORCINE 10,000 UNIT/ML 1 ML VIAL ONE (12:19)
[2020-12-13 13:10] LABS: Basophils % (A) 1 %; Eosinophils % (A) 1 %; HCT 49.7 % (39.0-53.0); HGB 16.7 gm/dL (13.0-17.5); Lymphocytes # (A) 0.9 k/uL (1.0-4.8); Lymphocytes % (A) 14 %; MCH 32.4 pg (25.0-35.0); MCHC 33.6 g/dL (31.0-37.0); MCV 96.6 fL (80.0-100.0); Mean Platelet Volume 9.6; Monocytes # (A) 0.5 k/uL (0-1.0); Monocytes % (A) 8 %; Neutrophils # (A) 4.7 k/uL (1.3-7.7); Neutrophils % (A) 74 %; Platelet Count 181 k/uL (150-450); RBC 5.15 m/uL (4.30-5.90); RDW 13.4 % (11.5-15.5); WBC 6.4 k/uL (3.8-10.6)
[2020-12-13] MEDS ORDERED: HEPARIN SOD,PORK IN 0.45% NACL 25,000 UNIT in 0.45% NACL 1 250ML.BAG IV ONE (13:12)
[2020-12-13] MEDS ORDERED: LIDOCAINE 1% INJ 10MG/ML (20 ML MDV) SQ ONE (13:19)
[2020-12-13 13:20] LABS: African American GFR (CKD) >90 (>60 ml/min/1.73 sqM); Anion Gap 8 mmol/L; Blood Urea Nitrogen 20 mg/dL (9-20); Calcium 9.6 mg/dL (8.4-10.2); Carbon Dioxide 26 mmol/L (22-30); Chloride 102 mmol/L (98-107); Glucose 93 mg/dL (74-99); Non-African American GFR(CKD) >90 (>60 ml/min/1.73 sqM); Potassium 4.1 mmol/L (3.5-5.1); Sodium 136 mmol/L (137-145)
[2020-12-13 13:21] LABS: Prothrombin Time 19.9 sec (9.0-12.0)
[2020-12-13] MEDS ORDERED: HEPARIN SODIUM (1,000 UNIT/ML) 1,000 UNIT in SODIUM CHLORIDE 0.9% 1,000 ML IRRIGATION ONE (16:00)
[2020-12-13] MEDS ORDERED: SODIUM CHLORIDE 0.9% 500 ML 500 ML IV ONE (16:00)
[2020-12-13] MEDS ORDERED: IOPAMIDOL-370 100ML BTL INJ ONE (16:51)
[2020-12-13] MEDS ORDERED: ACETAMINOPHEN TAB 325 MG TAB PO PRN (16:58)
[2020-12-13] MEDS ORDERED: ACETAMINOPHEN IV (For NPO) 1,000 MG/100 ML VIAL IVPB ONE (17:32)
--- NOTE | 2020-12-13 17:36 | P.EPCON ---
Electrophysiology Consult - EP Consult Electrophysiology Consult: PROCEDURE A. fib ablation DIAGNOSIS Atrial fibrillation, symptomatic, refractory to therapy Persistent RESULT No left atrial appendage seen on intracardiac echo, status post left appendectomy Recovery of pulmonary vein potentials in all pulmonary veins especially right superior left superior and left inferior Successful A. fib ablation/pulmonary vein isolation of all veins using cryo- ablation Complete entrance block in all 4 veins confirmed No evidence for phrenic nerve injury RF ablation along the posterior septum and the fossa ovalis along fractionated electrograms Esophageal deflection YES PROCEDURE DETAILS Patient was brought to the EP lab in a fasting state. Written informed consent was obtained prior to the procedure. Procedure performed under general anesthesia After initial muscle relaxant use, muscle relaxants were not given thereafter in order to assess phrenic nerve during procedure. Patient prepped and draped as per protocol Full cryo-set up with standard preparation of the cryoablation tools done. Femoral Venous access obtained on the right and left groins Venous and arterial Sheaths placed. Diagnostic catheters for the high right atrium, phrenic nerve stimulation and pacing, His bundle, RV and coronary sinus placed Intracardiac echo catheter placed. Long sheath placed in the right atrium Left and right transseptal catheterization performed under intracardiac echo guidance. Intravenous heparin with aCT above 300 Later, catheter positioning and balloon positioning in the left atrium, under intracardiac echo guidance Diagnostic EP study with Coronary sinus pacing and recording Patient underwent general anesthesia was in a junctional rhythm and he was paced from the Prasad sinus and atrial milliseconds through most of the procedure Baseline measurements Sinus cycle length: 1121 ms, NJ interval 174 ms QRS 180 ms, QT 476 (Branch block pattern, left bundle Atrial pacing performed from the high right atrium and the coronary sinus RV pacing. VA block greater than 800 ms Transseptal catheterization performed RA pressure 15/2/8 LA pressure 18/1/7 and 16/4/9 Transseptal catheterization performed with standard sheath. The cryoablation sheath was then placed with an over the wire exchange without any acute complications. All 4 pulmonary veins were isolated in the following sequence: Left superior followed by left inferior followed by right superior followed by right inferior The cryo-ablation balloon was placed at the os of each vein 1.5 mL of IV dye was injected to confirm an occluded vein Goal during cryoablation was to achieve complete occlusion of the pulmonary vein, achieve -30 degrees C at 30 seconds and achieve -40 degrees C at 60 seconds and a time to effect of less than 60-90 seconds, . If not the balloon was repositioned to obtain this result After completion of Cryoblation with durations from 180-240 seconds, entrance block was confirmed with the Attain circular catheter in a roving fashion around the antrum of the pulmonary veins Phrenic nerve pacing was performed from the SVC, right innominate vein area and diaphragm voltage was monitored. Diaphragmatic contractions were also monitored manually for strength of contraction. Parameter goals for each cryo freeze Complete occlusion of the appropriate vein -30 degrees C by 30 seconds -40 degrees C by 60 seconds Minimum between minus 40-55 degrees C Thaw time greater than 10 seconds Balloon visualized by intracardiac echo The esophagus was intubated. Esophageal Temperature monitoring with a CIRCA catheter formed. Esophageal deflection for hypothermia of the esophagus below 30 degrees C Left superior pulmonary vein was active Complete isolation, entrance block Left inferior pulmonary vein was active Complete isolation, entrance block Right superior pulmonary vein, during phrenic nerve pacing was active Complete isolation, entrance block Right inferior pulmonary vein, during phrenic nerve pacing Complete isolation, entrance block At the end of the procedure the Achieve catheter was once again used to check for entrance block Phrenic nerve stimulation was performed to confirm diaphragmatic stimulation the end of the procedure Cine fluoroscopy was performed at the very end of the procedure to confirm movement of both diaphragms with inspiration and expiration 3-D electro-anatomic mapping was performed Complete entrance block noted in all 4 pulmonary veins at the anterolateral Roof length was 5.3 cm. No ablation the roof was performed. No fractionated signals noted along the roof Fractionated signals along the posterior septum RF ablation was performed here and this is connected to the right-sided antral lesions At the end of the procedure the patient was extubated Heparin was reversed Venous sheaths were removed and hemostasis assured PROCEDURES PERFORMED Diagnostic EP study CS pacing and recording Left and right transseptal catheterization 3D mapping) Intracardiac echocardiography Pulmonary vein isolation with transseptal and comprehensive EPS, [id number] Linear ablation, left atrium, +[id number]
--- NOTE | 2020-12-13 17:40 | P.PCN ---
Preoperative Diagnosis: Increase procedure services This is a long procedure This is primarily due to the transseptal access This is a very difficult transseptal access The right atrium significantly enlarged and achieving contact with the sheath in the transseptal system, on 2 the fossa ovalis to time The fossa ovalis prosthetic Multiple attempts were to be made to find the list site that could allow for passage of the long sheaths It took almost an hour to access the left atrium
[2020-12-13] MEDS ORDERED: ACETAMINOPHEN IV (For NPO) 1,000 MG in EMPTY BAG 1 BAG IVPB ONE (18:00)
[2020-12-13] MEDS ORDERED: WARFARIN 7.5 MG TAB PO ONE (21:00)
[2020-12-14 06:12] LABS: INR 2.4 (<1.2); Prothrombin Time 22.9 sec (9.0-12.0)
[2020-12-14 07:17] VITALS: BP 120/71; PULSE 54; RESP 14; TEMP 97.8
[2020-12-14] MEDS ORDERED: ASPIRIN 81 MG PO SCH (07:30)
--- NOTE | 2020-12-14 10:08 | P.DS ---
Providers Attending physician: Jian Demarco Primary care physician: Juan Pablo [facility] Course: INTERVAL HISTORY: The patient is a 55-year-old male with a past medical history of persistent atrial fibrillation, mitral valve regurgitation with mitral valve prolapse status post mechanical mitral prosthesis, sick sinus syndrome and episodes of accelerated junctional rhythm noted in the past, hypertension admitted to the hospital by Dr. Demarco for atrial fibrillation ablation/pulmonary vein isolation of all veins using cryo-ablation on 12/13/20. Patient was in sinus mechanism after the procedure however converted back to atrial fibrillation. Patient seen and examined at bedside, no acute distress. His vital signs are stable. Denies chest pain, shortness of breath, palpitaitons, lightheadedness or dizziness. He does have some tenderness at bilateral groin sites. Flostasis device was removed and dry dressing was placed. PHYSICAL EXAMINATION: Blood pressure 120/71, heart rate 77, afebrile, maintaining oxygen saturations on room air HEART: Irregular, S1, S2 normal. LUNGS: Clear to auscultation. NECK: Supple. ABDOMEN: Soft. EXTREMITIES: 2+ peripheral pulses. SKIN: Bilateral groin sites tenderness to palpation, some mild serosanguenious drainage. EKG this morning reveals atrial fibrillation, heart rate 86. Telemetry reviewed patient in atrial fibrillation with controlled ventricular rate, occasional PVCs, one 4 beat NSVT run LAB DATA: INR 2.4 FINAL IMPRESSION: 1. Status post atrial fibrillation ablation/pulmonary vein isolation of all veins using cryo-ablation on 12/13/20 2. Persistent atrial fibrillation on Eliquis 3. History of mitral valve regurgitation with mitral valve prolapse status post mechanical mitral prosthesis 4. History of sick sinus syndrome with episodes of accelerated junctional rhythm 5. History of hypertension PLAN: Patient may be able to be discharged home later today around lunch time after ambulating around without any difficulty. We will make him a follow-up appointment with Dr. Demarco in 2 weeks. Reduce flecainide and 25 mg twice a day to start tomorrow Increase warfarin to 5 mg daily except on Wednesdays when I would like him to take 7.5 mg by mouth daily Continue all other medications Plan - Discharge Summary Discharge Rx Participant: Yes New Discharge Prescriptions: New Warfarin [Coumadin] 7.5 mg PO DAILY #30 tab Flecainide [Tambocor] 50 mg PO Q12HR #30 tablet Discontinued Warfarin [Coumadin] 5 mg PO SUMOWETHSA Warfarin [Coumadin] 7.5 mg PO TUFR Flecainide [Tambocor] 75 mg PO Q12HR #180 tablet No Action Multivitamins, Thera [Multivitamin (formulary)] 1 tab PO W/BRKFST Furosemide [Lasix] 20 mg PO W/BRKFST Cholecalciferol [Vitamin D3 (25 Mcg = 1000 Iu)] 50 mcg PO W/BRKFST Aspirin 81 mg PO W/BRKFST Discharge Medication List Multivitamins, Thera [Multivitamin (formulary)] 1 tab PO W/BRKFST 06/14/15 [History] Furosemide [Lasix] 20 mg PO W/BRKFST 11/26/15 [History] Aspirin 81 mg PO W/BRKFST 05/03/20 [History] Cholecalciferol [Vitamin D3 (25 Mcg = 1000 Iu)] 50 mcg PO W/BRKFST 05/03/20 [History] Flecainide [Tambocor] 50 mg PO Q12HR #30 tablet 12/13/20 [Rx] Warfarin [Coumadin] 7.5 mg PO DAILY #30 tab 12/13/20 [Rx] Follow up Appointment(s)/Referral(s): Jian Demarco MD [STAFF PHYSICIAN] - 2 Weeks ( Dr. Demarco/Miriam Whittaker 1-2 weeks PT/INR check in 7-10 days. Patient has a mechanical mitral valve INR goal is close to 3.0) Activity/Diet/Wound Care/Special Instructions: Post EP study - Ablation instructions 1. Keep access sites dry for 2 days. 2. No heavy lifting or straining for 2 days. 3. Avoid bending the hips repeatedly for 2 days. 4. You may go up and down stairs slowly Call if the following is noted 1. Bleeding, increasing swelling or pain at the access sites. 2. Increasing chest discomfort, especially upon taking a deep breath. 3. Increasing shortness of breath, at rest or with exertion. 4. Undue cough / phlegm 5. Difficulty or pain while swallowing. 6. Pain or change in color in the extremities. 7. Fever, chills, rigors. 8. Increasing headache or neurologic symptoms. 9. Dizziness, fainting, palpitations Reduce flecainide 25 g twice daily Increase warfarin to 5 mg daily except on Wednesdays when I would like him to take 7.5 mg by mouth daily Continue all other medications Follow-up with Dr. Demarco/Miriam Whittaker in 1-2 weeks along with the PT/INR Since patient is a mechanical valve in the mitral position, I would like his INR to be closer to 3.0 Discharge Disposition: HOME SELF-CARE
[2020-12-14] MEDS ORDERED: WARFARIN 7.5 MG TAB PO ONE (18:00)
== END 2020-12-14 13:50 | disposition home or self-care (01) ==
LOC: CATHEP 10:09 → 6NMEDSUR 16:51 → CATHEP 12-14 13:50
PROVIDERS: ATTEND Internal Medicine Clinical Cardiac Electrophysiology
DX: Z95.4 Presence of other heart-valve replacement (principal); I10 Essential (primary) hypertension; Z82.49 Family history of ischemic heart disease and other diseases of the circulatory system; I49.5 Sick sinus syndrome; I11.0 Hypertensive heart disease with heart failure; Z20.822 Contact with and (suspected) exposure to COVID-19; I50.9 Heart failure, unspecified; G47.33 Obstructive sleep apnea (adult) (pediatric); Z79.01 Long term (current) use of anticoagulants; Z79.82 Long term (current) use of aspirin; Z79.899 Other long term (current) drug therapy
CPT/HCPCS: 93662; 93613; 93656; 93657; 80048; 85025; 85610 ×2; 87635; C1894 ×2; C1769 ×5; C1760; C1730 ×2; C1759; C1893; C1733; C1766; C1732; J2250; J2720; J0461; J1644 ×3; J1940; J0690 ×2; J2001; J3010; J0131; J0330; J2704; Q9967

== ENCOUNTER 2021-04-21 09:52 | Day surgery (SDC) | payer MEDICAID ==
[2021-04-19 11:40] VITALS: BMI 32.3
[~2021-04-21 09:52] MED LIST changes: -LACTATED RINGERS 1,000 ML IV SCH
[2021-04-21 10:51] VITALS: BP 162/95; PULSE 56; RESP 16; TEMP 97.7
[2021-04-21 11:09] LABS: INR 3.6 (<1.2); Prothrombin Time 35.8 sec (9.0-12.0)
[2021-04-21] MEDS ORDERED: LIDOCAINE 1% INJ 10MG/ML (20 ML MDV) SQ ONE ×2 (11:26→11:31)
--- NOTE | 2021-04-21 11:48 | P.EPPROC ---
- EP Procedure Note Electrophysiology Procedure Note: Loop monitor implant Primary physicians: [employer]: Dr. Demarco Indication: Sick Sinus Syndrome, junctional rhythm history of atrial fibrillation mitral valve prolapse status post mechanical mitral valve replacement Patient was brought to the EP lab in a fasting state. Written informed consent was obtained prior to the procedure. The left pectoral area was prepped and draped per protocol. Intravenous antibiotic was administered preoperatively. A subcutaneous Loop monitor was implanted successfully and the wound was closed per protocol. The device was programmed to detect significant feli- arrhythmic and tachy-arrhythmic events, per protocol. Device and programming details: Syncope and bradycardia protocol Patient underwent EP procedure under conscious sedation/moderate sedation, monitoring of the level of consciousness and physiologic parameters including but not limited to vital signs and oxygenation. Patient tolerated the procedure well without any acute complications. Start time: 1126 Stop time:1135
== END 2021-04-21 12:18 | disposition home or self-care (01) ==
LOC: CATHEP 09:52
PROVIDERS: ATTEND Internal Medicine Clinical Cardiac Electrophysiology
DX: I49.5 Sick sinus syndrome (principal); I48.19 Other persistent atrial fibrillation; Z95.3 Presence of xenogenic heart valve; I10 Essential (primary) hypertension; Z98.890 Other specified postprocedural states; Z20.822 Contact with and (suspected) exposure to COVID-19; Z82.49 Family history of ischemic heart disease and other diseases of the circulatory system; Z79.01 Long term (current) use of anticoagulants; Z79.82 Long term (current) use of aspirin; Z79.899 Other long term (current) drug therapy
CPT/HCPCS: 33285; 85610; 87635; C1764; J0690; J2001

== ENCOUNTER → 2022-04-03 | Outpatient (CLI) | payer MEDICAID ==
[~2022-04-03] MED LIST changes: +REGADENOSON 0.4 MG/5 ML SYRINGE IV PRN; -SODIUM CHLORIDE 0.9% 1,000 ML IV SCH
--- NOTE | 2022-04-03 11:37 | CA ---
Lexiscan Nuclear Stress Test Report Name: Michael Chavez Exam Date: 04/03/2022 10:09 Exam Location: [place] Stress Ht (in): 73 Wt (lb): 219 BSA: 2.24 Ordering Phys: Jian Rivera MD Referring Phys: jian rivera,, Technologist: Matthew Roberts Age: 56 Gender: M : 1965 Procedure CPT: Indications: R07.9 ICD-10 Codes: Patient History: Medications: SEE CHART Meds past 24 hrs: Pretest Chest Pain: STRESS TEST Lexiscan Protocol Exercise Duration (min:sec): 02:[address] Depressions (mm): Angina Score: Farr Score: Resting HR (bpm): 51 Peak HR (bpm): 87 Resting BP (mmHg): 146 / 72 Peak BP (mmHg): 172 / 91 MPHR: 163 Target HR: 139 % MPHR: 53 METS: 1.0 Total Dose: Peak Dose: Atropine: Double Product: 59987 BP Response: Stress Termination: PROTOCOL COMPLETE Stress Symptoms: Stress Summary: ECG ANALYSIS Resting ECG: Stress ECG: CONCLUSIONS Nondiagnostic electrocardiogram stress test Please follow-up on the Cardiolite portion Dr. Marc Kelsey MD (Electronically Signed) Final Date: 03 April 2022 11:36
--- NOTE | 2022-04-03 12:53 | NM ---
EXAMINATION TYPE: NM stress lexiscan cardiolite DATE OF EXAM: 04/03/2022 COMPARISON: NONE HISTORY: History of hypertension and hypercholesteremia. Patient presents with chest pain and palpita tions. TECHNIQUE: After the intravenous administration of 9.7 mCi Tc 99m Sestamibi - Cardiolite resting SPE CT images acquired 45 minutes post injection. The patient received 0.4mg Lexiscan, 25.2 mCi Tc 99m Sestamibi - Stress images obtained [address] injection FINDINGS: Review of stress and rest SPECT images demonstrates subtle area of diminished radiotracer uptake late ral left ventricular wall towards the apex on stress images versus rest images seen best on the horiz ontal long axis views. Abnormal end-diastolic volume of 212 cc is noted. There is poor uptake on stre ss and rest images inferior left ventricular wall could reflect product of old infarct versus artifac t. Gated analysis shows overall estimated left ventricular ejection fraction of 52 %. IMPRESSION: Problem old infarct. Possible acute ischemia lateral left ventricular wall in the left ci rcumflex distribution. Consider direct catheter angiogram follow-up based on degree of clinical suspi cion. A Yellow level critical message alert has been initiated for Jian Demarco MD via the [facility] System on 04/03/2022 12:50 PM. This message alert has been sent to Jian Demarco MD via the preferences provided by the clinician for the receipt of Radiology Critical Findings. Mess age ID [id number].
== END | disposition home or self-care (01) ==
LOC: RADNMMAIN 08:31
PROVIDERS: ATTEND Internal Medicine Clinical Cardiac Electrophysiology
DX: E78.00 Pure hypercholesterolemia, unspecified (principal); R07.9 Chest pain, unspecified; I48.19 Other persistent atrial fibrillation; I10 Essential (primary) hypertension
CPT/HCPCS: 93017; 78452; A9500; J2785

== ENCOUNTER → 2022-12-16 | Outpatient (CLI) | payer MEDICAID ==
[2022-12-16 14:55] LABS: INR 2.74 sec (0.93-1.11); Prothrombin Time 29.8 sec (9.9-11.9)
== END | disposition home or self-care (01) ==
LOC: LABWHC1 09:08
PROVIDERS: ATTEND Nurse Practitioner Adult Health
DX: Z95.2 Presence of prosthetic heart valve (principal)
CPT/HCPCS: 36415; 85610

== ENCOUNTER → 2023-03-27 | Outpatient (CLI) | payer OTHER ==
--- NOTE | 2023-03-27 09:13 | XR ---
EXAMINATION TYPE: XR chest 2V DATE OF EXAM: 03/27/2023 9:10 AM CLINICAL INDICATION:Male, 57 years old with history of R06.2 Wheezing; PHH COMPARISON: Chest radiographs from 05/03/2020 TECHNIQUE: XR chest 2V Frontal and lateral views of the chest. FINDINGS: Lungs/Pleura: There is no evidence of pleural effusion, focal consolidation, or pneumothorax. Pulmonary vascularity: Unremarkable. Heart/mediastinum: Cardiomediastinal silhouette is unremarkable. Post valve repair changes. A loop r ecorder projects over the left thorax over the heart. Musculoskeletal: No acute osseous pathology. Midline sternotomy wires are noted. Other findings: None IMPRESSION: No acute cardiopulmonary disease/process.
== END | disposition home or self-care (01) ==
LOC: RADXRMAIN 08:56
PROVIDERS: ATTEND Family Medicine
DX: R06.2 Wheezing (principal)
CPT/HCPCS: 71046

== ENCOUNTER 2023-11-26 14:38 | Emergency (ER) | payer OTHER ==
[2023-11-26 14:53] VITALS: RESP 18
--- NOTE | 2023-11-26 14:59 | ED ---
Recheck HPI - General Source: patient, RN notes reviewed Mode of arrival: ambulatory Limitations: no limitations <Miriam Hoyos - Last Filed: 11/26/23 14:58> - General Source: patient, RN notes reviewed Mode of arrival: ambulatory Limitations: no limitations <Gerardo Esquivel - Last Filed: 11/26/23 20:07> - General Chief Complaint: Recheck/Abnormal Lab/Rx Stated Complaint: abn labs Time Seen by Provider: 11/26/23 14:58 - History of Present Illness Initial Comments: Quick note: 58-year-old male presented to ER with a chief complaint of abnormal labs. Patient takes warfarin for mechanical mitral valve. He states he takes 5 mg daily except for where he takes 7.5 mg. His last dose was last night. He had blood work drawn today at [facility] and was found to have a INR of 5.5. He denies any hematochezia, melena, bleeding gums. He does state he fell down a hill and has bruising to his right francois. No other complaints. (Miriam Hoyos) 58-year-old male presents emergency department chief complaint of elevated INR. Patient states he went to urgent care because he was not feeling well states that he is just felt under the weather over the last few days. Patient denies any head injury no loss conscious. He does take Coumadin because he has a mechanical mitral valve. Patient states that he had blood work drawn today and states he received a phone call from [facility] stating that his INR was over 5. Patient denies any bleeding including hematochezia, melena, hematemesis or coffee-ground emesis. States he had an injury to his leg several days ago but again denies any head injury no back pain no chest pain no shortness of breath (Gerardo Esquivel) - Related Data Home Medications Medication Instructions Recorded Confirmed Multivitamins, Thera [Multivitamin 1 tab PO DAILY 06/14/15 04/13/22 (formulary)] Furosemide [Lasix] 20 mg PO DAILY 11/26/15 04/13/22 Aspirin 81 mg PO DAILY 05/03/20 04/13/22 Cholecalciferol [Vitamin D3 (25 50 mcg PO DAILY 05/03/20 04/13/22 Mcg = 1000 Iu)] Losartan Potassium [Cozaar] 75 mg PO DAILY 04/19/21 04/13/22 Warfarin [Coumadin] 5 mg PO SUTUWETHFRSA 04/19/21 04/10/22 Warfarin [Coumadin] 7.5 mg PO MO 04/19/21 04/10/22 Atorvastatin [Lipitor] 10 mg PO HS 04/10/22 04/13/22 Flecainide [Tambocor] 50 mg PO BID 04/10/22 04/13/22 Previous Rx's Medication Instructions Recorded Enoxaparin [Lovenox] 100 mg SQ BID #10 each 04/13/22 Allergies Allergy/AdvReac Type Severity Reaction Status Date / Time No Known Allergies Allergy Verified 11/26/23 14:53 Review of Systems ROS Other: All systems not noted in ROS Statement are negative. <Miriam Hoyos - Last Filed: 11/26/23 14:58> ROS Other: All systems not noted in ROS Statement are negative. <Gerardo Esquivel - Last Filed: 11/26/23 20:07> ROS Statement: Those systems with pertinent positive or pertinent negative responses have been documented in the HPI. Past Medical History Past Medical History: Atrial Fibrillation, Heart Failure, Hearing Disorder / Deafness, Hypertension, Sleep Apnea/CPAP/BIPAP Additional Past Medical History / Comment(s): CPAP use. Hx COVID 04/2020. Bilateral hearing aids. History of Any Multi-Drug Resistant Organisms: None Reported Past Surgical History: Cardiac Ablation, Cardiac Valve Replacement, Ear Surgery, Heart Catheterization Additional Past Surgical History / Comment(s): RT EAR SURGERY X2, CARDIOVERSION X3, ARIELLA, mitral valve replacement and repair of tricuspid valve 12/05/2016, COLONOSCOPY, last cardioversion- October 2020. Past Anesthesia/Blood Transfusion Reactions: No Reported Reaction Additional Past Anesthesia/Blood Transfusion Reaction / Comment(s): Slow to wake up after heart valve surgery. Past Psychological History: No Psychological Hx Reported Smoking Status: Never smoker Past Alcohol Use History: Occasional Past Drug Use History: None Reported - Past Family History Father Family Medical History: Cancer Additional Family Medical History / Comment(s): ESOPHAGEAL CANCER. Mother Family Medical History: Pulmonary Embolus Additional Family Medical History / Comment(s): . Brother(s) Family Medical History: Cancer, Deep Vein Thrombosis (DVT) Additional Family Medical History / Comment(s): One brother had prostate cancer, one brother passed from pancreatic cancer. <Miriam Hoyos - Last Filed: 11/26/23 14:58> General Exam Limitations: no limitations <Miriam Hoyos - Last Filed: 11/26/23 14:58> General appearance: alert, in no apparent distress Head exam: Present: atraumatic, normocephalic, normal inspection Eye exam: Present: normal appearance, PERRL, EOMI. Absent: scleral icterus, conjunctival injection, periorbital swelling ENT exam: Present: normal exam, normal oropharynx, mucous membranes moist Neck exam: Present: normal inspection, full ROM. Absent: tenderness, meningismus, lymphadenopathy Respiratory exam: Present: normal lung sounds bilaterally. Absent: respiratory distress, wheezes, rales, rhonchi, stridor Cardiovascular Exam: Present: regular rate, normal rhythm, normal heart sounds. Absent: systolic murmur, diastolic murmur, rubs, gallop, clicks GI/Abdominal exam: Present: soft, normal bowel sounds. Absent: distended, tend erness, guarding, rebound, rigid Back exam: Absent: CVA tenderness (R), CVA tenderness (L) Neurological exam: Present: alert, oriented X3, CN II-XII intact, motor sensory deficit Skin exam: Present: warm, dry, intact, normal color. Absent: rash <Gerardo Esquivel - Last Filed: 11/26/23 20:07> - General Exam Comments Initial Comments: Visual Physical Exam Vital signs reviewed General: Well-appearing, nontoxic, no acute distress. Head: Normocephalic, atraumatic Eyes: PERRLA, EOMI ENT: Airway patent Chest: Nonlabored breathing Skin: No visual rash, normal skin tone Neuro: Alert and oriented 3 Musculoskeletal: No gross abnormalities, bruising to right calf (Miriam Hoyos) Course Vital Signs 11/26/23 11/26/23 14:51 18:07 Temperature 97.9 F 98.0 F Pulse Rate 72 58 L Respiratory 18 18 Rate Blood Pressure 150/85 161/81 O2 Sat by Pulse 98 99 Oximetry Medical Decision Making <Miriam Hoyos - Last Filed: 11/26/23 14:58> - Lab Data Result diagrams: 11/26/23 15:35 11/26/23 15:35 <TheronljGerardo M - Last Filed: 11/26/23 20:07> - Medical Decision Making I performed the quick note portion of this chart. Electronically signed by Miriam Hoyos PA-C (Miriam Hoyos) Was pt. sent in by a medical professional or institution (SCOTT Bhakta, SLITTER CUT OFF OPERATOR, urgent care, hospital, or halfway...) When possible be specific @ -Care Did you speak to anyone other than the patient for history (EMS, parent, family, police, friend...)? What history was obtained from this source @ -No Did you review nursing and triage notes (agree or disagree)? Why? @ -I reviewed and agree with nursing and triage notes Were old charts reviewed (outside hosp., previous admission, EMS record, old EKG, old radiological studies, urgent care reports/EKG's, halfway records)? Report findings @ -No old charts were reviewed Differential Diagnosis (chest pain, altered mental status, abdominal pain women, abdominal pain men, vaginal bleeding, weakness, fever, dyspnea, syncope, headache, dizziness, GI bleed, back pain, seizure, CVA, palpatations, mental health, musculoskeletal)? @ -Elevated INR, pneumonia, fatigue, weakness, COVID 19, RSV, influenza, pneumonia, acute bronchitis, URI, this list is not all inclusive EKG interpreted by me (3pts min.). @ -None X-rays interpreted by me (1pt min.). @ -Chest x-ray shows no acute cardiopulmonary process CT interpreted by me (1pt min.). @ -None done U/S interpreted by me (1pt. min.). @ -None done What testing was considered but not performed or refused? (CT, X-rays, U/S, labs)? Why? @ -None What meds were considered but not given or refused? Why? @ -None Did you discuss the management of the patient with other professionals (professionals i.e. SCOTT Bhakta, SLITTER CUT OFF OPERATOR, lab, RT, psych nurse, psychologist social, batterboard setter, teacher, postal sorting officer, watch case polisher)? Give summary @ -No Was smoking cessation discussed for >3mins.? @ -No Was critical care preformed (if so, how long)? @ -No Were there social determinants of health that impacted care today? How? (Homelessness, low income, unemployed, alcoholism, drug addiction, transportation, low edu. Level, literacy, decrease access to med. care, [facility], rehab)? @ -No Was there de-escalation of care discussed even if they declined (Discuss DNR or withdrawal of care, Hospice)? DNR status @ -No What co-morbidities impacted this encounter? (DM, HTN, Smoking, COPD, CAD, Cancer, CVA, ARF, Chemo, Hep., AIDS, mental health diagnosis, sleep apnea, morbid obesity)? @ -Mechanical heart valve Was patient admitted / discharged? Hospital course, mention meds given and route, prescriptions, significant lab abnormalities, going to OR and other pertinent info. @ -Discharge patient laboratory studies other than his INR unremarkable. Patient has INR of 5.8 patient will hold Coumadin and recheck with cardiology tomorrow. Patient more likely has a viral illness as he said fatigue and generalized malaise without complaints of chest pain or any focal weakness. Undiagnosed new problem with uncertain prognosis? @ -No Drug Therapy requiring intensive monitoring for toxicity (Heparin, Nitro, Insulin, Cardizem)? @ -No Were any procedures done? @ -No Diagnosis/symptom? @ -Viral illness, elevated INR Acute, or Chronic, or Acute on Chronic? @ -Acute Uncomplicated (without systemic symptoms) or Complicated (systemic symptoms)? @ -Uncomplicated Side effects of treatment? @ -No Exacerbation, Progression, or Severe Exacerbation? @ -No Poses a threat to life or bodily function? How? (Chest pain, [place], [place], pneumonia, PE, COPD, DKA, ARF, appy, cholecystitis, CVA, Diverticulitis, Homicidal, Suicidal, threat to staff... and all critical care pts) @ -No (Gerardo Esquivel) - Lab Data Lab Results 11/26/23 11/26/23 11/26/23 Range/Units 15:35 15:35 15:35 WBC 7.2 (3.8-10.6) k/uL RBC 4.32 (4.30-5.90) m/uL Hgb 13.9 (13.0-17.5) gm/dL Hct 42.4 (39.0-53.0) % MCV 98.2 (80.0-100.0) fL MCH 32.2 (25.0-35.0) pg MCHC 32.8 (31.0-37.0) g/dL RDW 13.8 (11.5-15.5) % Plt Count 212 (150-450) k/uL MPV 7.8 Neutrophils % 80 % Lymphocytes % 9 % Monocytes % 7 % Eosinophils % 1 % Basophils % 0 % Neutrophils # 5.8 (1.3-7.7) k/uL Lymphocytes # 0.7 L (1.0-4.8) k/uL Monocytes # 0.5 (0-1.0) k/uL Eosinophils # 0.1 (0-0.7) k/uL Basophils # 0.0 (0-0.2) k/uL PT 56.5 H (10.0-12.5) sec INR 5.8 H* (<1.2) APTT 48.5 H (22.0-30.0) sec Sodium 138 (137-145) mmol/L Potassium 4.0 (3.5-5.1) mmol/L Chloride 106 (98-107) mmol/L Carbon Dioxide 26 (22-30) mmol/L Anion Gap 6 mmol/L BUN 16 (9-20) mg/dL Creatinine 0.74 (0.66-1.25) mg/dL Est GFR (CKD-EPI)AfAm >90 (>60 ml/min/1.73 sqM) Est GFR (CKD-EPI)NonAf >90 (>60 ml/min/1.73 sqM) Glucose 91 (74-99) mg/dL Calcium 9.3 (8.4-10.2) mg/dL Total Bilirubin 1.6 H (0.2-1.3) mg/dL AST 40 (17-59) U/L ALT 30 (4-49) U/L Alkaline Phosphatase 79 (38-126) U/L Total Protein 6.5 (6.3-8.2) g/dL Albumin 4.2 (3.5-5.0) g/dL Influenza Type A (PCR) (Not Detectd) Influenza Type B (PCR) (Not Detectd) RSV (PCR) (Not Detectd) SARS-CoV-2 (PCR) (Not Detectd) 11/26/23 Range/Units 17:00 WBC (3.8-10.6) k/uL RBC (4.30-5.90) m/uL Hgb (13.0-17.5) gm/dL Hct (39.0-53.0) % MCV (80.0-100.0) fL MCH (25.0-35.0) pg MCHC (31.0-37.0) g/dL RDW (11.5-15.5) % Plt Count (150-450) k/uL MPV Neutrophils % % Lymphocytes % % Monocytes % % Eosinophils % % Basophils % % Neutrophils # (1.3-7.7) k/uL Lymphocytes # (1.0-4.8) k/uL Monocytes # (0-1.0) k/uL Eosinophils # (0-0.7) k/uL Basophils # (0-0.2) k/uL PT (10.0-12.5) sec INR (<1.2) APTT (22.0-30.0) sec Sodium (137-145) mmol/L Potassium (3.5-5.1) mmol/L Chloride (98-107) mmol/L Carbon Dioxide (22-30) mmol/L Anion Gap mmol/L BUN (9-20) mg/dL Creatinine (0.66-1.25) mg/dL Est GFR (CKD-EPI)AfAm (>60 ml/min/1.73 sqM) Est GFR (CKD-EPI)NonAf (>60 ml/min/1.73 sqM) Glucose (74-99) mg/dL Calcium (8.4-10.2) mg/dL Total Bilirubin (0.2-1.3) mg/dL AST (17-59) U/L ALT (4-49) U/L Alkaline Phosphatase (38-126) U/L Total Protein (6.3-8.2) g/dL Albumin (3.5-5.0) g/dL Influenza Type A (PCR) Not Detected (Not Detectd) Influenza Type B (PCR) Not Detected (Not Detectd) RSV (PCR) Not Detected (Not Detectd) SARS-CoV-2 (PCR) Not Detected (Not Detectd) Disposition <Miriam Hoyos - Last Filed: 11/26/23 14:58> Is patient prescribed a controlled substance at d/c from ED?: No Time of Disposition: :55 <Gerardo Esquivel - Last Filed: 11/26/23 20:07> Clinical Impression: Viral illness, Elevated INR Disposition: HOME SELF-CARE Condition: Stable Instructions (If sedation given, give patient instructions): Elevated INR (ED) Additional Instructions: Please return to the Emergency Department if symptoms worsen or any other concerns. Referrals: Juan Pablo Bradley DO [Primary Care Provider] - 1-2 days
[2023-11-26 15:44] LABS: Basophils % (A) 0 %; Eosinophils # (A) 0.1 k/uL (0-0.7); Eosinophils % (A) 1 %; HCT 42.4 % (39.0-53.0); HGB 13.9 gm/dL (13.0-17.5); Lymphocytes # (A) 0.7 k/uL (1.0-4.8); Lymphocytes % (A) 9 %; MCH 32.2 pg (25.0-35.0); MCHC 32.8 g/dL (31.0-37.0); MCV 98.2 fL (80.0-100.0); Mean Platelet Volume 7.8; Monocytes # (A) 0.5 k/uL (0-1.0); Monocytes % (A) 7 %; Neutrophils # (A) 5.8 k/uL (1.3-7.7); Neutrophils % (A) 80 %; Platelet Count 212 k/uL (150-450); RBC 4.32 m/uL (4.30-5.90); RDW 13.8 % (11.5-15.5); WBC 7.2 k/uL (3.8-10.6)
[2023-11-26 15:58] LABS: Partial Thromboplastin Time 48.5 sec (22.0-30.0)
[2023-11-26 16:03] LABS: ALT 30 U/L (4-49); AST 40 U/L (17-59); African American GFR (CKD) >90 (>60 ml/min/1.73 sqM); Albumin 4.2 g/dL (3.5-5.0); Alkaline Phosphatase 79 U/L (38-126); Anion Gap 6 mmol/L; Blood Urea Nitrogen 16 mg/dL (9-20); Calcium 9.3 mg/dL (8.4-10.2); Carbon Dioxide 26 mmol/L (22-30); Chloride 106 mmol/L (98-107); Glucose 91 mg/dL (74-99); Non-African American GFR(CKD) >90 (>60 ml/min/1.73 sqM); Prothrombin Time 56.5 sec (10.0-12.5); Sodium 138 mmol/L (137-145); Total Bilirubin 1.6 mg/dL (0.2-1.3); Total Protein 6.5 g/dL (6.3-8.2)
[2023-11-26 16:10] LABS: INR 5.8 (<1.2)
--- NOTE | 2023-11-26 17:14 | XR ---
EXAMINATION TYPE: XR chest 2V DATE OF EXAM: 11/26/2023 COMPARISON: 03/27/2023 HISTORY: Weakness TECHNIQUE: Frontal and lateral views of the chest are obtained. FINDINGS: There is no focal air space opacity, pleural effusion, or pneumothorax seen. The cardiac silhouette size is within normal limits. The osseous structures are intact. There is a prosthetic h eart valve and a loop recorder. IMPRESSION: No acute cardiopulmonary process. [facility], , 11/26/2023 5:12 PM
[2023-11-26 18:08] VITALS: BP 161/81; PULSE 58; TEMP 98
== END 2023-11-26 18:07 | disposition home or self-care (01) ==
LOC: EC 14:38
DX: R79.9 Abnormal finding of blood chemistry, unspecified
CPT/HCPCS: 36415; 71046; 80053; 85025; 85610; 85730; 87636; 99284

== ENCOUNTER 2024-03-25 05:41 | Day surgery (SDC) | payer BC, OTHER ==
[2024-03-25] MEDS ORDERED: LACTATED RINGERS 1,000 ML IV SCH (05:53)
[2024-03-25] MEDS ORDERED: LIDOCAINE 1% (10MG/ML) FOR IV START INTRADERMA PRN (05:53)
[2024-03-25] MEDS: IV FLUID CONTINUATION 1,000 ML IV ONE (06:30)
[2024-03-25] MEDS: SODIUM CHLORIDE 0.9% 1,000 ML IV SCH (06:37)
[2024-03-25 06:39] VITALS: RESP 16; TEMP 97.9
[2024-03-25 06:50] LABS: African American GFR (CKD) >90 (>60 ml/min/1.73 sqM); Anion Gap 6 mmol/L; Blood Urea Nitrogen 22 mg/dL (9-20); Carbon Dioxide 28 mmol/L (22-30); Chloride 102 mmol/L (98-107); Glucose 88 mg/dL (74-99); Non-African American GFR(CKD) >90 (>60 ml/min/1.73 sqM); Potassium 4.6 mmol/L (3.5-5.1); Sodium 136 mmol/L (137-145)
[2024-03-25] MEDS ORDERED: LIDOCAINE 1% INJ 10MG/ML (20 ML MDV) ONE (07:16)
[2024-03-25] MEDS ORDERED: PROPOFOL 10 MG/ML 20 ML VIAL IV ONE (07:16)
[2024-03-25 07:17] LABS: INR 3.9 (<1.2)
[2024-03-25 08:25] VITALS: PULSE 55
[2024-03-25 08:39] VITALS: BP 117/82
--- NOTE | 2024-03-25 16:00 | P.EPPROC ---
- EP Procedure Note Electrophysiology Procedure Note: Diagnosis Persistent atrial fibrillation, symptomatic with tiredness fatigue Underlying sick sinus syndrome Valvular heart disease INR 3.9 Sodium 136 potassium 4.6 BUN 22 creatinine 0.9 Procedure Successful electrical cardioversion with a 200 J biphasic shock in the AP configuration to sinus rhythm/sinus bradycardia and junctional rhythm Plan 12 EKG Continue anticoagulation Proceed with A-fib ablation since the patient has been experiencing recurrent episodes of atrial fibrillation though asymptomatic 12 EKG shows sinus mechanism at 57 beats a minute with intermittent junctional beats and junctional rhythm at 55 beats a minute
== END 2024-03-25 08:44 | disposition home or self-care (01) ==
LOC: CATHEP 05:41
PROVIDERS: ATTEND Internal Medicine Clinical Cardiac Electrophysiology
DX: I48.19 Other persistent atrial fibrillation (principal); I49.5 Sick sinus syndrome; I25.10 Atherosclerotic heart disease of native coronary artery without angina pectoris; I34.0 Nonrheumatic mitral (valve) insufficiency; Z95.2 Presence of prosthetic heart valve; Z79.01 Long term (current) use of anticoagulants; E78.5 Hyperlipidemia, unspecified; Z79.82 Long term (current) use of aspirin
CPT/HCPCS: 92960; 80048; 85610; J2003; J2704

== ENCOUNTER → 2024-05-26 | Outpatient (CLI) | payer BC ==
[2024-05-26 15:18] LABS: HCT 49.2 % (39.6-50.0); HGB 16.4 g/dL (13.0-17.0); MCHC 33.3 g/dL (32.0-37.0); MCV 96.1 FL (80.0-97.0); Mean Platelet Volume 11.1 FL (9.5-12.2); NRBC Per 100 WBC 0 X 10*3/uL (0.00-0.01); Platelet Count 170 X 10*3/uL (140-440); RBC 5.12 X 10*6/uL (4.40-5.60); RDW 13.1 % (11.5-14.5); WBC 6.69 X 10*3/uL (4.50-10.00)
[2024-05-26 15:35] LABS: Blood Urea Nitrogen 19.4 mg/dL (9.0-27.0); Carbon Dioxide 25.8 mmol/L (21.6-31.8); Chloride 101 mmol/L (96-109); Potassium 4.4 mmol/L (3.5-5.5); Sodium 137 mmol/L (135-145)
== END | disposition home or self-care (01) ==
LOC: LABPAT 11:02
PROVIDERS: ATTEND Internal Medicine Clinical Cardiac Electrophysiology
DX: Z01.812 Encounter for preprocedural laboratory examination (principal); I48.19 Other persistent atrial fibrillation
CPT/HCPCS: 80051; 82565; 84520; 85027

== ENCOUNTER 2024-06-05 07:37 | Day surgery (SDC) | payer BC, OTHER ==
[2024-06-02 12:19] VITALS: BMI 31.5
[~2024-06-05 07:37] MED LIST changes: +LIDOCAINE 1% (10MG/ML) FOR IV START INTRADERMA PRN; -REGADENOSON 0.4 MG/5 ML SYRINGE IV PRN
[2024-06-05] MEDS: IV FLUID CONTINUATION 1,000 ML IV ONE (08:05)
[2024-06-05] MEDS: SODIUM CHLORIDE 0.9% 1,000 ML IV SCH (08:09)
[2024-06-05 08:27] LABS: INR 2.8 (<1.2); Prothrombin Time 27.8 sec (10.0-12.5)
[2024-06-05 08:57] LABS: ALT 36 U/L (4-49); AST 31 U/L (17-59); African American GFR (CKD) >90 (>60 ml/min/1.73 sqM); Albumin 4.6 g/dL (3.5-5.0); Alkaline Phosphatase 79 U/L (38-126); Anion Gap 7 mmol/L; Blood Urea Nitrogen 19 mg/dL (9-20); Calcium 9.4 mg/dL (8.4-10.2); Carbon Dioxide 29 mmol/L (22-30); Chloride 101 mmol/L (98-107); Glucose 98 mg/dL (74-99); Non-African American GFR(CKD) >90 (>60 ml/min/1.73 sqM); Potassium 4.5 mmol/L (3.5-5.1); Sodium 137 mmol/L (137-145); Total Bilirubin 1.1 mg/dL (0.2-1.3); Total Protein 7.3 g/dL (6.3-8.2)
[2024-06-05] MEDS ORDERED: SUCCINYLCHOLINE CHLORIDE 200 MG/10 ML VIAL IV ONE (10:00)
[2024-06-05] MEDS ORDERED: fentaNYL (PF) 50 MCG/ML 2 ML AMP ONE (10:00)
[2024-06-05] MEDS ORDERED: PHENYLEPHRINE 10 MG/ML VIAL ONE (10:00)
[2024-06-05] MEDS ORDERED: MIDAZOLAM 2 MG/2 ML VIAL ONE (10:00)
[2024-06-05] MEDS ORDERED: PROPOFOL 10 MG/ML 20 ML VIAL IV ONE (10:00)
[2024-06-05] MEDS ORDERED: NEOSTIGMINE 1 MG/ML 10 ML VIAL ONE (10:00)
[2024-06-05] MEDS ORDERED: ePHEDrine 50 MG/ML 1 ML VIAL ONE (10:00)
[2024-06-05] MEDS ORDERED: LIDOCAINE 1% INJ 10MG/ML (20 ML MDV) ONE (10:00)
[2024-06-05] MEDS ORDERED: HEPARIN SODIUM,PORCINE 10,000 UNIT/ML 1 ML VIAL ONE (10:00)
[2024-06-05] MEDS ORDERED: GLYCOPYRROLATE 0.2 MG/ML 2 ML VIAL ONE (10:00)
[2024-06-05] MEDS ORDERED: ROCURONIUM 10 MG/ML (5 ML VIAL) IV ONE (10:00)
[2024-06-05] MEDS: HEPARIN SODIUM,PORCINE 10,000 UNIT in SODIUM CHLORIDE 0.9% 1,000 ML IRRIGATION ONE (10:16)
[2024-06-05] MEDS: HEPARIN SOD,PORK IN 0.45% NACL 25,000 UNIT in 0.45% NACL 1 250ML.BAG IV ONE (10:17)
[2024-06-05] MEDS: HEPARIN SODIUM,PORCINE (1 ML) 2,500 UNIT in SODIUM CHLORIDE 0.9% 250 ML IRRIGATION ONE (10:17)
[2024-06-05] MEDS: LIDOCAINE 1% INJ 10MG/ML (20 ML MDV) SQ ONE (10:41)
[2024-06-05] MEDS: IOPAMIDOL-370 100ML BTL INJ ONE (13:00)
[2024-06-05] MEDS: HEPARIN SODIUM (1,000 UNIT/ML) 1,000 UNIT in SODIUM CHLORIDE 0.9% 1,000 ML IRRIGATION ONE (15:36)
[2024-06-05] MEDS: ACETAMINOPHEN IV (For NPO) 1,000 MG in EMPTY BAG 1 BAG IVPB ONE (18:07)
--- NOTE | 2024-06-05 18:10 | CA ---
Transthoracic Echo Report Name: Michael Chavez Age: 58 Gender: M : 1965 Exam Date: 06/05/2024 16:45 Exam Location: [facility] Ht (in): 73 Wt (lb): 241 Ordering Physician: Jian Demarco MD ([id number]) Attending/Referring Phys: Floor Coverer Apprentice Ana Barnes RDCS Procedure CPT: Indications: Mechanical mitral valve, status post ablation Cardiac Hx: Technical Quality: Fair Contrast 1: Total Dose (mL): Contrast 2: Total Dose (mL): MEASUREMENTS (Male / Female) Normal Values 2D ECHO LV Diastolic Diameter PLAX 6.4 cm 4.2 - 5.9 / 3.9 - 5.3 cm LV Systolic Diameter PLAX 4.3 cm IVS Diastolic Thickness 1.6 cm 0.6 - 1.0 / 0.6 - 0.9 cm LVPW Diastolic Thickness 1.6 cm 0.6 - 1.0 / 0.6 - 0.9 cm LV Relative Wall Thickness 0.5 RV Internal Dim ED PLAX 3.5 cm LV Diastolic Volume MOD 4C 98.4 cm??? LV Systolic Volume MOD 4C 50.3 cm??? LV Ejection Fraction MOD 4C 48.8 % LV Cardiac Index MOD 4C 1280.3 cm???/min???m??? LV Diastolic Length 4C 7.5 cm LV Systolic Length 4C 6.3 cm LV Diastolic Volume MOD 2C 127.4 cm??? LV Systolic Volume MOD 2C 51.9 cm??? LV Ejection Fraction MOD 2C 59.3 % LV Cardiac Index MOD 2C 2011.4 cm???/min???m??? LV Diastolic Length 2C 7.9 cm LV Systolic Length 2C 6.5 cm LA Volume 133.7 cm??? 18 - 58 / 22 - 52 cm??? LA Volume Index 55.7 cm???/m??? 16 - 28 cm???/m??? M-MODE Aortic Root Diameter MM 4.1 cm DOPPLER AV Peak Velocity 169.1 cm/s AV Peak Gradient 11.4 mmHg AI Peak Velocity 480.0 cm/s AI Peak Gradient 92.1 mmHg AI Pressure Half Time 666.8 ms MV Peak Velocity 241.1 cm/s MV Peak Gradient 23.3 mmHg MV Mean Velocity 127.1 cm/s MV Mean Gradient 7.4 mmHg MV Velocity Time Integral 47.5 cm MV Area PHT 2.5 cm??? Mitral E Point Velocity 227.2 cm/s Mitral A Point Velocity 75.2 cm/s Mitral E to A Ratio 3.0 MV Deceleration Time 308.1 ms FINDINGS Left Ventricle Left ventricular ejection fraction is estimated at 50-55 %. Moderately increased septal wall thickness. Mildly increased left ventricular diastolic diameter. No obvious regional wall motion abnormalities. Right Ventricle Mild right ventricular dilatation. Unable to estimate the right ventricular systolic pressure. Right Atrium Severe right atrial dilatation. No right atrial thrombus or mass seen. Left Atrium Severely increased left atrial volume. Moderately increased left atrial area. No left atrial thrombus or mass present. Mitral Valve Normal function of Mechanical MV with mean gradient of 7 mmHg. Trace mitral regurgitation. Aortic Valve Trileaflet aortic valve. Thickened aortic valve without stenosis. Mild aortic regurgitation. Tricuspid Valve Structurally normal tricuspid valve. No tricuspid stenosis, regurgitation or prolapse. Pulmonic Valve Structurally normal pulmonic valve. Trace pulmonic regurgitation. Pericardium No pericardial effusion. Aorta Moderate aortic dilatation at the level of the sinuses of valsalva 41 mm CONCLUSIONS Indication status post A-fib ablation. Mechanical mitral valve prosthesis Left ventricle systolic function of 50 to 55% Biatrial enlargement Mild RV enlargement Mechanical mitral valve prosthesis in stable position with a gradient of about 7 mmHg Previewed by: Dr. Jian Demarco MD (Electronically Signed) Final Date: 05 June 2024 18:09
[2024-06-05] MEDS: LACTATED RINGERS 1,000 ML IV SCH (18:48)
[2024-06-05] MEDS: WARFARIN 5 MG TAB PO SCH (18:57)
[2024-06-05] MEDS: LOSARTAN 50 MG TAB PO SCH (21:48)
[2024-06-05] MEDS: OXYBUTYNIN 10 MG TAB.ER.24 PO SCH (21:48)
[2024-06-05] MEDS: ATORVASTATIN 10 MG TAB PO SCH (21:48)
[2024-06-06 07:59] VITALS: BP 137/74; PULSE 55; RESP 16; TEMP 98.8
[2024-06-06] MEDS: ASPIRIN 81 MG PO SCH (09:41)
[2024-06-06] MEDS: ACETAMINOPHEN TAB 325 MG TAB PO PRN (09:41)
[2024-06-06] MEDS: FUROSEMIDE 20 MG TAB PO SCH (09:41)
[2024-06-06] MEDS: COLCHICINE 0.6 MG EACH PO SCH (09:46)
[2024-06-06] MEDS: BENZOCAINE/MENTHOL LOZENG 1 EACH LOZENGE MUCOUS MEM PRN (10:42)
[2024-06-06] MEDS: DRY MOUTH SPRAY 59 SPRAY/59 ML SPRAY MUCOUS MEM PRN (10:43)
--- NOTE | 2024-06-06 10:55 | P.DS ---
Providers Expected date of discharge: 06/06/24 Attending physician: Jian Demarco Primary care physician: Juan Pablo Lds Hospital Course: This is a 58-year-old male with past medical history of atrial fibrillation status post ablation, valvular heart disease status post mechanical MVR, dyslipidemia. Patient was brought into the hospital for EP study and ablation. Patient remains in a sinus rhythm. This morning, patient has tenderness to the right groin area. He also complains of some discomfort in his chest which is expected. He also has significant bruising to the right side of his tongue and right lips. Patient complains of sore throat. He does not have any difficulty with swallowing. No plan for ARIELLA. Blood pressure 137/74, heart rate 55, pulse ox 96% on room air. Cepacol lozenges, mouth coat added for oral discomfort. Colchicine added for chest discomfort. Patient will be discharged home today in stable condition. - Echocardiogram reveals EF of 50 to 55%, biatrial enlargement. Mild RV enlargement. Mechanical mitral valve prosthesis in stable position with gradient of about 7 mmHg. Physical examination: Gen: This is a 58-year-old male in no acute distress. VS: reviewed HEENT: Head is atraumatic, normocephalic. Pupils equal, round. Sclerae is anicteric. Right side of tongue has significant ecchymosis as well as lips. No active bleeding. NECK: Supple. No JVD. LUNGS: Clear to auscultation. No wheezes or rhonchi. No intercostal retractions. HEART: Regular rate and rhythm. ABDOMEN: Soft No tenderness. EXTREMITIES: No pedal edema. Mild tenderness to the right groin. No bleeding or hematoma. NEUROLOGICAL: Patient is awake, alert and oriented x3. Assessment: Atrial fibrillation status post ablation History of valvular heart disease status post mechanical MVR Dyslipidemia Nurse practitioner note has been reviewed, I agree with documented findings and plan of care. Patient was seen and examined. Plan - Discharge Summary Discharge Rx Participant: Yes New Discharge Prescriptions: New Colchicine [Colcrys] 0.6 mg PO DAILY #4 tablet Continue Furosemide [Lasix] 20 mg PO DAILY Cholecalciferol [Vitamin D3 (25 Mcg = 1000 Iu)] 50 mcg PO DAILY Aspirin 81 mg PO DAILY Warfarin [Coumadin] 5 mg PO SUTUTHSA Losartan Potassium [Cozaar] 50 mg PO BID Tolterodine Tartrate [Tolterodine Tartrate ER] 4 mg PO HS Warfarin [Coumadin] 2.5 mg PO MOWEFR Atorvastatin [Lipitor] 10 mg PO HS Discharge Medication List Furosemide [Lasix] 20 mg PO DAILY 11/26/15 [History] Aspirin 81 mg PO DAILY 05/03/20 [History] Cholecalciferol [Vitamin D3 (25 Mcg = 1000 Iu)] 50 mcg PO DAILY 05/03/20 [History] Losartan Potassium [Cozaar] 50 mg PO BID 04/19/21 [History] Warfarin [Coumadin] 2.5 mg PO MOWEFR 04/19/21 [History] Warfarin [Coumadin] 5 mg PO SUTUTHSA 04/19/21 [History] Atorvastatin [Lipitor] 10 mg PO HS 04/10/22 [History] Tolterodine Tartrate [Tolterodine Tartrate ER] 4 mg PO HS 03/21/24 [History] Colchicine [Colcrys] 0.6 mg PO DAILY #4 tablet 06/06/24 [Rx] Discharge Disposition: HOME SELF-CARE
[2024-06-06 11:50] LABS: INR 3.3 (<1.2); Prothrombin Time 33.1 sec (10.0-12.5)
[2024-06-06] MEDS ORDERED: WARFARIN 2.5 MG TAB PO SCH (18:00)
== END 2024-06-06 15:31 | disposition home or self-care (01) ==
LOC: CATHEP 07:37 → 6NMEDSUR 15:45 → CATHEP 06-06 15:31
PROVIDERS: ATTEND Internal Medicine Clinical Cardiac Electrophysiology
DX: I08.0 Rheumatic disorders of both mitral and aortic valves (principal); I37.1 Nonrheumatic pulmonary valve insufficiency; I25.10 Atherosclerotic heart disease of native coronary artery without angina pectoris; I42.0 Dilated cardiomyopathy; I49.5 Sick sinus syndrome; I48.19 Other persistent atrial fibrillation; E78.5 Hyperlipidemia, unspecified; Z79.01 Long term (current) use of anticoagulants; Z79.82 Long term (current) use of aspirin; Z95.2 Presence of prosthetic heart valve; Z98.890 Other specified postprocedural states; Z79.899 Other long term (current) drug therapy
CPT/HCPCS: 93306; 86900; 86901; 80053; 85610 ×2; 86850; C1759; C1894 ×3; C1773; C1769 ×4; C1760 ×2; C1766 ×2; C1730; C1731; C1893; C1732; J2250; J0330; J1644 ×4; J2710; J2003; J3010; J0131; J2704; Q9967; J2371; J1596